=== PATIENT | female | born 1985 | race Two or more races ===

== ENCOUNTER 2020-07-14 13:16 | Emergency (ER) | payer MEDICARE, MEDICAID, SELFPAY ==
[2020-07-14 13:42] VITALS: BP 134/77; PULSE 85; RESP 17; TEMP 36.2; O2SAT 98; BMI 36.4
--- NOTE | 2020-07-14 14:10 | ED_ITS ---
HPI - Eye Problem General Chief complaint: Eye Problems Stated complaint: eye pain Time Seen by Provider: 07/14/20 14:02 Source: patient Mode of arrival: ambulatory Limitations: no limitations History of Present Illness HPI Narrative: 34-year-old female presenting to the ED with complaints of right upper eyelid swelling for the past 2 days worse today. Denies any other symptoms complaints or concerns related to this. Related Data Previous Rx's Medication Instructions Recorded cephalexin [Keflex] 500 mg PO Q6H 14 Days #56 cap 07/14/20 ibuprofen 800 mg PO Q8H PRN #14 tab 07/14/20 oxycodone-acetaminophen [Percocet] 1 tab PO Q6H PRN #10 tab 07/14/20 sulfamethoxazole-trimethoprim 1 tab PO Q12H 14 Days #28 tab NS 07/14/20 [Bactrim DS] Allergies Allergy/AdvReac Type Severity Reaction Status Date / Time tramadol Allergy Unknown Unknown Verified 07/14/20 13:46 No Known Allergies Allergy Verified 07/14/20 13:46 Review of Systems Review of Systems: Constitutional : No Fever, No Chills ENT/Mouth : No Ear Pain, No Nasal Congestion, No Sinus Pain, No Hoarseness, No sore throat, No Rhinorrhea, No Swallowing Difficulty Eyes: No Foreign Body, No Vision Changes, No trauma, No eye pain Cardiovascular : No Chest Pain, No SOB Respiratory : No Cough Musculoskeletal : No joint pain, No Myalgias, No Joint Swelling Skin : No Skin Lesions, No rash Neuro : No Weakness, No Headache Heme/Lymph: No Lymphadenopathy Yes all other systems are reviewed and are negative [facility] Past Medical History Attestation statement: The following information was validated with the patient. Surgical History No pertinent past surgical history Family History Family History Father Diabetes Mother No problems noted. Social History Social History Smoking Status: Never smoker Use of substances other than those prescribed or required for medical reasons: Yes Substance Use Type: Marijuana Substance Use Frequency: Daily Advance Directives: No Advance Directives Information Provided: Yes Physical Exam Vital Signs: Vital Signs: Vital Signs Temp Pulse Resp BP Pulse Ox 07/14/20 13:42 97.2 F 85 17 134/77 98 Body Mass Index 36.4 vital signs have been reviewed as normal and appeared to be correct. Blood pressure normal. Heart rate normal. Respiration rate normal. Temperature normal. Oxygen saturation normal. Appearance: Alert. Oriented X3. No acute distress. Head: Normal external exam. Normocephalic. Atraumatic. No Ray signs noted. No raccoon eyes noted Eyes: PERRLA. EOMI. Conjunctiva and sclera normal. right upper eyelid with mild soft tissue swelling and erythema. Right eye noted to have watery discharge. normal funduscopic exam. ENT: EAC normal. TM's Normal. Pharynx normal. Uvula midline. Moist mucous membranes. No trismus noted. No drooling noted. No muffled voice noted. Neck: Normal inspection. Neck supple. FROM. No adenopathy. Thyroid Normal. No meningeal signs. No neck mass noted. CVS: Normal heart rate and rhythm. Heart sound normal. No murmurs noted. Pulses normal throughout. Respiratory: No respiratory distress. Painless inspiration. Breath sounds normal. No wheezes/rales/rhonchi noted. Chest nontender. No accessory muscle usage noted or decreased air movement noted. Abdomen: Soft and nontender. Bowel sounds normal in all 4 quadrants. No distention noted. No organomegaly noted. No visible injury noted. Back: No CVA tenderness. Full range of motion noted. Skin: Skin warm and dry. Normal skin color. Normal skin turgor. No rashes/lesions/lacerations noted. Extremities: No lower extremity edema. Extremities exhibit normal range of motion. Extremities nontender. Neuro: Oriented X 3. No motor deficit. No sensory deficit. Reflexes normal. Course Course Course Narrative: 34-year-old female presenting to the ED with complaints of right upper eyelid swelling for the past 2 days worse today. Denies any other symptoms complaints or concerns related to this. - Patient most likely periorbital cellulitis. Extraocular movements are intact. No evidence of orbital cellulitis at this time. Will DC home with antibiotics and symptomatic treatment along with instructions to return if any new or worsening symptoms to follow-up with her primary care provider. Patient understands agrees with this plan. Discharge Plan Discharge Clinical Impression: Periorbital cellulitis Patient Disposition: Home, Self-Care Instructions: Periorbital Cellulitis in Adults (ED) Prescriptions: New sulfamethoxazole-trimethoprim [Bactrim DS] 800-160 mg tablet 1 tab PO Q12H 14 Days Qty: 28 RF: 0 cephalexin [Keflex] 500 mg capsule 500 mg PO Q6H 14 Days Qty: 56 RF: 0 oxycodone-acetaminophen [Percocet] 5-325 mg tablet 1 tab PO Q6H PRN (Reason: pain) Qty: 10 RF: 0 ibuprofen 800 mg tablet 800 mg PO Q8H PRN (Reason: pain) Qty: 14 RF: 0 Referrals: Po,Olamide Johns MD [Primary Care Provider] - 2 days Stand Alone Forms: Work/School Release Print Language: Sami
[2020-07-14] MEDS: cephALEXin 500 MG CAPSULE PO (14:11)
== END 2020-07-14 14:35 | disposition home or self-care (01) ==
PROVIDERS: Emergency Provider Emergency Medicine; PCP Internal Medicine
DX: L03.213 Periorbital cellulitis (principal)
CPT/HCPCS: 99283

== ENCOUNTER 2020-09-12 08:32 | Emergency (ER) | payer MEDICARE, MEDICAID, SELFPAY ==
--- NOTE | 2020-09-12 08:44 | ED.EYEPROB ---
HPI - Eye Problem General Chief complaint: Eye Problems Stated complaint: eye issue Time Seen by Provider: 09/12/20 08:44 Source: patient Mode of arrival: ambulatory History of Present Illness HPI Narrative: 35 yo female with history of periorbital cellulitis in Jun 2020 presenting with right eye pain x2 days and right eye redness and drainage that started yesterday. She states she woke up with morning and her eye was crusted shut. She denies change in vision. She does not wear contacts. She denies trauma. She feels like there is something stuck in her eye. Related Data Previous Rx's Medication Instructions Recorded cephalexin [Keflex] 500 mg PO Q6H 14 Days #56 cap 07/14/20 ibuprofen 800 mg PO Q8H PRN #14 tab 07/14/20 oxycodone-acetaminophen [Percocet] 1 tab PO Q6H PRN #10 tab 07/14/20 sulfamethoxazole-trimethoprim 1 tab PO Q12H 14 Days #28 tab NS 07/14/20 [Bactrim DS] cephalexin [Keflex] 500 mg PO QID #28 cap 09/12/20 erythromycin 0.5 inch OPHTHALMIC (EYE) TID #3.5 09/12/20 g sulfamethoxazole-trimethoprim 1 tab PO Q12H #14 tab 09/12/20 [Bactrim DS] Allergies Allergy/AdvReac Type Severity Reaction Status Date / Time tramadol Allergy Unknown Unknown Verified 07/14/20 13:46 No Known Allergies Allergy Verified 07/14/20 13:46 Review of Systems Review of Systems: Constitutional: No Fever, No Chills ENT/Mouth: No sore throat, No Rhinorrhea, No Swallowing Difficulty Eyes: + Eye Pain, + Swelling, + Redness, +discharge Cardiovascular: No Chest Pain, No SOB Respiratory: No Cough, No Sputum Musculoskeletal: No joint pain, No Myalgias Skin: No Skin Lesions, No rash Neuro: + Headache Heme/Lymph: No Bruising PMFSH Past Medical History Attestation statement: The following information was validated with the patient. Medical History Asthma Surgical History No pertinent past surgical history Family History Family History Father Diabetes Mother No problems noted. Social History Social History Smoking Status: Never smoker Substance Use Type: Marijuana Advance Directives: No Advance Directives Information Provided: Yes Physical Exam Vital Signs: Vital Signs: Last Vital Signs Temp 98.4 F 09/12/20 08:48 Pulse 81 09/12/20 08:48 Resp 16 09/12/20 08:48 BP 109/65 09/12/20 08:48 Pulse Ox 97 09/12/20 08:48 Body Mass Index 35.9 Appearance: Alert. Oriented X3. No acute distress. HEENT: PERRLA, EOMI. right eye with upper lid edema and erythema, no hordeolum appreciated, conjunctiva is injected with watery discharge, fluoroscein stain showing small linear abrasion at 9 o clock position. no ulcerations. VA noted. CVS: Normal heart rate and rhythm. Pulses normal. Respiratory: No respiratory distress. Skin: Skin warm and dry. Normal skin color. Normal skin turgor. No rashes. Extremities: no LE edema Neuro: Oriented X 3. No motor deficit. No sensory deficit. Course Course Course Narrative: 35 y/o female presenting with eye pain and redness x2 days. Hx periorbital cellulitis. Will treat for the same given her exam findings. Very low suspicion for sepsis. Small corneal abrasion as well so topical erythromycin ointment prescribed. Will refer to ophthalmology. Instructed to return if symptoms worsen. Discharge Plan Discharge Clinical Impression: Bacterial conjunctivitis, Periorbital cellulitis of right eye Patient Disposition: Home, Self-Care Instructions: Periorbital Cellulitis in Adults (ED), Conjunctivitis (ED) Additional Instructions: Take the prescribed antibiotics as directed. Use the antibiotic ointment in your as well. Follow up with your doctor this week. Follow up with the eye doctor this week as well. If your symptoms worsen despite treatment with antibiotics, come back to the ER for further evaluation. Prescriptions: New cephalexin [Keflex] 500 mg capsule 500 mg PO QID Qty: 28 RF: 0 sulfamethoxazole-trimethoprim [Bactrim DS] 800-160 mg tablet 1 tab PO Q12H Qty: 14 RF: 0 erythromycin 5 mg/gram (0.5 %) ointment 0.5 inch ophthalmic (eye) TID Qty: 3.5 RF: 0 No Action sulfamethoxazole-trimethoprim [Bactrim DS] 800-160 mg tablet 1 tab PO Q12H 14 Days Qty: 28 RF: 0 cephalexin [Keflex] 500 mg capsule 500 mg PO Q6H 14 Days Qty: 56 RF: 0 oxycodone-acetaminophen [Percocet] 5-325 mg tablet 1 tab PO Q6H PRN (Reason: pain) Qty: 10 RF: 0 ibuprofen 800 mg tablet 800 mg PO Q8H PRN (Reason: pain) Qty: 14 RF: 0 Referrals: Shivam Gomez [Physician] - 2 days Interventions: ED Discharge Assessment Last Done: 09/12/20 09:51 Discharge Date/Time: 09/12/20 09:52
[2020-09-12 08:48] VITALS: BP 109/65; PULSE 81; RESP 16; TEMP 36.9; O2SAT 97; BMI 35.9
[2020-09-12] MEDS: Tetracaine HCl/PF 0.5% Oph Sol 4 ML DROPS 1 DROP EYE-RIGHT (09:03)
[2020-09-12] MEDS: Fluorescein Sodium STRIP 1 STRIP EYE-BOTH (09:03)
== END 2020-09-12 09:52 | disposition home or self-care (01) ==
PROVIDERS: Emergency Provider Emergency Medicine; PCP Internal Medicine
DX: H10.89 Other conjunctivitis (principal); L03.213 Periorbital cellulitis
CPT/HCPCS: 99283

== ENCOUNTER 2020-10-22 09:04 | Outpatient (REF) | payer MEDICARE, MEDICAID, SELFPAY ==
[2020-10-22 09:47] LABS: MANUAL DIFF FLAG NO
[2020-10-22 09:54] LABS: Basophils Percent Auto 0.3 % (0-2); Eosinophils Absolute Auto 0.1 X10*3/uL (0.0-0.4); Eosinophils Percent Auto 0.9 % (0-4); Hematocrit 43.1 % (37-47); Imm Gran Abs Auto 0.02 X10*3/uL (0.00-0.03); Imm Gran Pct Auto 0.2 % (0.0-0.4); Lymphocytes Absolute Auto 2.4 X10*3/uL (1.2-4.9); Mean Corpuscular HGB Conc 32.5 g/dl (31.0-35.0); Mean Corpuscular Hemoglobin 30.3 pg (27.0-33.0); Mean Corpuscular Volume 93.3 fL (80-98); Mean Platelet Volume 10.3 fL (9.4-12.3); Monocytes Absolute Auto 0.6 X10*3/uL (0.1-1.2); Monocytes Percent Auto 7.2 % (2-11); Neutrophils Absolute Auto 5.6 X10*3/uL (2.0-8.3); Neutrophils Percent Auto 64.4 % (45-73); Platelet Count 334 X10*3/uL (160-400); Red Blood Count 4.62 X10*6/uL (4.20-5.50); Red Cell Distribution Width 13.3 % (11.0-16.0); White Blood Count 8.7 X10*3/uL (4.8-10.8)
[2020-10-22 09:56] LABS: Glucose Urine UA NEG (NEG); Leukocyte Esterase Urine NEG (NEG); Nitrite Urine NEG (NEG); PH 5.5 (5.0-8.0); Specific Gravity - Urine >= 1.030 (1.005-1.025); Urine Blood 1+ (NEG); Urine Ketones NEG (NEG); Urine Protein NEG (NEG-TRACE)
[2020-10-22 09:57] LABS: Appearance Urine HAZY; Color Urine YELLOW
[2020-10-22 10:22] LABS: Alanine Aminotransferase 13 U/L (0-31); Albumin Level 4.6 g/dL (3.5-5.0); Alkaline Phosphatase 71 U/L (39-117); Anion Gap 11 (12-20); Aspartate Amino Transferase 15 U/L (5-31); Bilirubin Total 0.7 mg/dL (0.0-1.0); Blood Urea Nitrogen 11 mg/dL (9-16); Calcium 8.9 mg/dL (8.4-10.2); Carbon Dioxide 26 mmol/L (22-29); Chloride 107 mmol/L (96-108); Cholesterol 192 mg/dL; Estimated Glomerular Filt Rate > 60; Glucose Random 86 mg/dL (60-115); HDL Cholesterol 36 mg/dL; LDL Cholesterol Calculated 138 mg/dl; Potassium 4.4 mmol/l (3.3-5.1); Sodium 140 mmol/L (135-145); Total Protein 7.8 g/dL (6.5-8.0); Triglycerides 91 mg/dL
[2020-10-22 10:26] LABS: Estimated Average Glucose 100 mg/dL; Hemoglobin A1c % 5.1 %
[2020-10-22 10:45] LABS: Free T4 (Free Thyroxine) 0.94 ng/dL (0.71-1.85); Thyroid Stimulating Hormone 0.46 uIU/mL (0.32-4.0)
[2020-10-22 10:55] LABS: Bacteria Urine TRACE /LPF; Mucus Urine 2+ /LPF; RBC Urine 0-2 /HPF (0); Squamous Epithelial Cell Urine 2+ /LPF; WBC Urine 0-2 /HPF (0-4)
[2020-10-25 15:33] LABS: Vitamin B12 353 pg/mL (200-900)
== END 2020-10-22 09:05 | disposition home or self-care (01) ==
LOC: HO.LAB 09:04
PROVIDERS: PCP Internal Medicine; Visit Provider Internal Medicine
DX: E78.00 Pure hypercholesterolemia, unspecified (principal); R30.0 Dysuria; R35.0 Frequency of micturition
CPT/HCPCS: 36415; 80053; 80061; 81001; 82607; 82746; 83036; 84439; 84443; 85025

== ENCOUNTER 2021-04-20 23:18 | Emergency (ER) | payer MEDICARE, MEDICAID, SELFPAY ==
--- NOTE | ~2021-04-20 | XR_ITS ---
EXAMINATION: XR LUMBOSACRAL SPINE CLINICAL INFORMATION: Fall COMPARISON: 02/16/2018 TECHNIQUE: Three views of the lumbosacral spine. FINDINGS: Minimal degenerative changes present with some mild disc space narrowing at L4-L5 and L5-S1. There is barely perceptible grade 1 anterolisthesis of L4 upon L5 which is new when compared to the prior study. No fractures or bony destructive lesions seen. XR/XR lumbar spine 2-3V IMPRESSION: No evidence of an acute traumatic osseous injury. Degenerative changes L4-S1 as described above.
[2021-04-20 23:55] VITALS: BP 109/65; PULSE 94; RESP 16; TEMP 36.7; O2SAT 100; BMI 29.2
[2021-04-21 03:11] VITALS: BP 102/57; PULSE 70; RESP 14; O2SAT 98
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
[2021-04-21] MEDS: Lidocaine 4 % Patch ADH..PATCH 1 PATCH TRANSDERMA (03:49)
[2021-04-21] MEDS: Ibuprofen 400 MG TABLET PO (03:59)
== END 2021-04-21 04:16 | disposition home or self-care (01) ==
PROVIDERS: Emergency Provider Student in an Organized Health Care Education/Training Program
DX: M54.5 Low back pain (principal); F12.90 Cannabis use, unspecified, uncomplicated; Z79.899 Other long term (current) drug therapy
CPT/HCPCS: 72100; 99283; 99284

== ENCOUNTER → 2021-07-11 10:16 | Outpatient (BNVA) | payer MEDICARE, MEDICAID, SELFPAY | PROVIDERS: PCP Internal Medicine; Visit Provider Anesthesiology | DX: M47.817 Spondylosis without myelopathy or radiculopathy, lumbosacral region (principal); G89.4 Chronic pain syndrome | CPT/HCPCS: 99202 ==

== ENCOUNTER 2021-10-14 07:24 | Day surgery (SDC) | payer MEDICARE, MEDICAID, SELFPAY ==
--- NOTE | 2021-10-13 10:51 | HO.ANESPROP2 ---
Documented by User: Veronica Patel NP 10/24/21 13:20 HPI - Anesthesia Eval Consult details Narrative: 36yo F for Bilateral L3-L4-DR L5 Diagnostic Medial Branch Blocks PMFSH Active Problems Active Problems: All Active Problems (Updated 10/07/21 @ 14:37 by Nisa Flowers, RN) Dysuria (Acute) Hand numbness (Acute) Overweight (BMI 25.0-29.9) (Acute) Low back pain (Acute) Hypercholesterolemia (Acute) Hematuria (Acute) Chronic pain syndrome (Acute) Spondylosis of lumbosacral spine without myelopathy (Acute) Recurrent major depression (Acute) Asthma (Acute) Obesity (BMI 30-39.9) (Acute) Past Medical History Medical History (Updated 10/07/21 @ 14:37 by Nisa Flowers, RN) Asthma Chronic pain syndrome Degenerative disc disease, lumbar Depression Hypercholesterolemia 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 Surgical History Surgical History (Updated 10/07/21 @ 14:41 by Nisa Flowers RN) History of surgery No pertinent past surgical history Social History Social History Housing: Apartment Patient Tobacco Use Status: Former Tobacco user Tobacco use type: Cigarette e-Cigarette/Vaping Use: Never Used Second Hand Smoke Exposure: No Substance Use Type: Marijuana service: No Current occupational status: unemployed Meds Allergies Allergy/AdvReac Type Severity Reaction Status Date / Time tramadol Allergy Unknown Unknown Verified 11/04/21 10:59 Home Medications Medication Instructions Recorded Confirmed Last Taken Type clonazepam 0.5 mg tablet 0.5 mg PO DAILY 10/20/20 11/04/21 Unknown History Exam Exam Date and Time: October 13, 2021 1051 Assessment and Plan Assessment Anesthesia Assessment: Chart Reviewed Documented by User: Collins Aparicio MD 01/04/22 16:25 HPI - Anesthesia Eval Consult details Narrative: 36yo F for Bilateral L3-L4-DR L5 Diagnostic Medial Branch Blocks both hand nubness PMFSH Past Medical History Medical History (Updated 10/07/21 @ 14:37 by Nisa Flowers, RN) Asthma Chronic pain syndrome Degenerative disc disease, lumbar Depression Hypercholesterolemia 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 Family history of problems with anesthesia: No Surgical History Surgical History (Updated 10/07/21 @ 14:41 by Nisa Flowers RN) History of surgery No pertinent past surgical history History of Problems with Anesthesia: No Social History Social History Housing: Apartment Patient Tobacco Use Status: Former Tobacco user Tobacco use type: Cigarette e-Cigarette/Vaping Use: Never Used Second Hand Smoke Exposure: No Substance Use Type: Marijuana service: No Current occupational status: unemployed Meds Allergies Allergy/AdvReac Type Severity Reaction Status Date / Time tramadol Allergy Unknown Unknown Verified 11/04/21 10:59 Home Medications Medication Instructions Recorded Confirmed Last Taken Type clonazepam 0.5 mg tablet 0.5 mg PO DAILY 10/20/20 11/04/21 Unknown History Exam Airway Mallampati Class: III TM Dist: >3cm Neck ROM: Limited Loose/Missing/Broken Teeth: Yes (Braces , bands ) Heart: S1 S2 Lungs: b/l breath sounds Assessment and Plan Assessment Anesthesia Assessment: Anesthesia Plan Discussed Final Anesthetic Review Family History of Problems with Anesthesia: No History of Problems with Anesthesia: No NPO: Yes ASA Class: II Final Preanesthetic Review: No Changes in Pt Med Stat, Meds/Allgs Chart Reviewed, Consent Obtained/Reviewed and Anes Risks/Benef Reviewed Patient Risk: Intermediate Procedure Risk: Intermediate Anesthetic Plan Anesthetic Plan: MAC: Disposition: Standard PACU
--- NOTE | ~2021-10-14 | FL_ITS ---
EXAMINATION: XR FLUOROSCOPY WITH IMAGES CLINICAL INFORMATION: Back pain COMPARISON: Lumbar spine study of April 21, 2021 TECHNIQUE: Fluoroscopy performed by Dr. Paul Posey. Fluoroscopy time: 0.5 minutes DAP: 4.68 Gycm2 Images: 6 FINDINGS: [place] and contrast seen injected for medial branch blocks bilaterally L3-L5 FL/FL guidance in OR IMPRESSION: Spinal injections under fluoroscopy.
[2021-10-14 07:33] VITALS: BMI 29.8
[2021-10-14 07:45] VITALS: BP 104/53; PULSE 91; RESP 16; TEMP 36.1; O2SAT 96
[2021-10-14 07:54] LABS: UPreg QC Valid YES; Urine Pregnancy NEGATIVE (NEGATIVE)
--- NOTE | 2021-10-14 07:54 | P.OP_ITS ---
Operative Note Operative Note Date of Service: 10/14/21 Narrative: Informed consent was explained to the patient. All questions were explained and? answered.? The patient was taken inside the operating room where she was positioned prone on the operating table.? [place] [employer] monitors were applied.? Patient was deeply sedated. ? Time-out was performed delineating correct site, side, the nature of the procedure, patient's allergy, preoperative antibiotic if needed.? All operating room staff was participating in OR time-out procedure. ? ? The lower back was prepped with ChloraPrep and draped with sterile towels.? Sterilely draped C-arm was brought over the operating field and sq picture of L4-and L5 vertebra and S1 AREA were delineated on the screen.? Point of interest were delineated as connection of superior articular process of L4 and L5 vertebra bilaterally with corresponding transverse processes as well as connection of the sacral alae bilaterally with superior articular process of S1.? The projection of the point of interest to the skin were injected with the small amount of local anesthetic lidocaine 2% 1-1.5 cc.? After that 22 gauge 3- 1/2 inch spinal needle was driven sequentially to the points of interest in tunnel vision fashion. After needles gently contacted the bone at the point of interests the needle was injected with small amount of the contrast.? The injection of the contrast did not demonstrate any intravascular or intrathecal spread of the contrast.? After that injection of the? bupivacaine 0.5%-1cc was performed at each needle location.? ? Upon completion of the injections? needle was? removed and sterile Band-Aids were applied.? The? patient was awaken and taken outside of the operating room to recovery room where she recovered uneventfully.? She went home without immediate complications. ?
--- NOTE | 2021-10-14 07:54 | MHC.SHP ---
Pre-Procedural Eval Section A Date of Service: 10/14/21 The patient is an INPATIENT: No Changes since office visit: Yes Patient answered all questions The History & Physical has been completed within 30 days and I have reviewed it.: No Section B Chief Complaint: Spondylosis of Lumosacral Spine w/o myelopathy Details of Present Illness: as above Relevant Family History (Specify if Yes): No Relevant Social History: None Present Medications: see Short Stay Collaborative assessment Medical History: No relevant PMH History of Previous Operations: No relevant previous surgery Allergies: Allergies Allergy/AdvReac Type Severity Reaction Status Date / Time tramadol Allergy Unknown Unknown Verified 10/07/21 14:26 Review of Systems Sugical H&P ROS: Negative: Constitution, Cardiovascular, Respiratory, Neurological, Psychiatric, Hem-Onc, Allergic/Immunologic, Gastrointestinal, Genitourinary, Musculoskeletal, Integumentary, Endocrine and Eyes/Ears/Nose/Throat Exam Surgical H&P Exam: Normal: HEENT, Normal: Heart, Normal: Lungs, Normal: Extremities, Normal: Abdomen, Normal: Skin and Normal: Neurological Plan Diagnosis/Plan: Unchanged I have reviewed the history and physical and performed a pertinent physical examination on my patient. No changes have occurred unless specified.
[2021-10-14] MEDS: Lactated Ringers 1,000 ML 100 ML IVCONT (07:56)
[2021-10-14 09:50] VITALS: BP 92/53; PULSE 100; RESP 20; TEMP 36.4; O2SAT 97
--- NOTE | 2021-10-14 10:00 | P.BOP_ITS ---
Brief Operative Note Date of Service: 10/14/21 Pre-op diagnosis: Spondylosis lumbar spine Post-op diagnosis: same Procedure: Medial branch block L3-L4 does ramus L5 bilateral diagnostic Surgeon: Paul Posey MD Anesthesia: MAC Was an Instrument And Electrical Technician used for this Procedure?: No Estimated blood loss (mL): 0 Pathology: none sent Condition: stable Disposition: PACU
[2021-10-14 10:05] VITALS: BP 101/55; PULSE 80; RESP 20; O2SAT 100
[2021-10-14 10:20] VITALS: BP 98/56; PULSE 77; RESP 18; TEMP 36.6; O2SAT 100
== END 2021-10-14 11:00 | disposition home or self-care (01) ==
PROVIDERS: Nurse Practitioner; PCP Internal Medicine; Visit Provider Anesthesiology
PROC: (CPT 64493; principal; 2021-10-14 09:00)
DX: M47.817 Spondylosis without myelopathy or radiculopathy, lumbosacral region (principal); M54.50 Low back pain, unspecified; G89.4 Chronic pain syndrome; M25.552 Pain in left hip; M25.551 Pain in right hip; M79.7 Fibromyalgia; G62.9 Polyneuropathy, unspecified; J45.909 Unspecified asthma, uncomplicated; F33.9 Major depressive disorder, recurrent, unspecified; E66.9 Obesity, unspecified; Z68.29 Body mass index [BMI] 29.0-29.9, adult; F12.90 Cannabis use, unspecified, uncomplicated; Z79.899 Other long term (current) drug therapy; Z88.8 Allergy status to other drugs, medicaments and biological substances; Z87.891 Personal history of nicotine dependence
CPT/HCPCS: 64493; 64494 ×2; 81025; J2250; J3300; Q9967

== ENCOUNTER → 2021-10-19 15:53 | Outpatient (BNVA) | payer MEDICARE, MEDICAID, SELFPAY | PROVIDERS: PCP Internal Medicine; Visit Provider Anesthesiology | DX: M47.817 Spondylosis without myelopathy or radiculopathy, lumbosacral region (principal); G89.4 Chronic pain syndrome | CPT/HCPCS: Q3014 ==

== ENCOUNTER 2022-10-13 07:32 | Outpatient (REF) | payer MEDICARE, MEDICAID, SELFPAY ==
--- NOTE | ~2022-10-13 | XR_ITS ---
EXAMINATION: XR cervical spine 2V CLINICAL INFORMATION: Pain COMPARISON: None TECHNIQUE: 3 views of the cervical spine were obtained. FINDINGS: The cervical spine is visualized to the level of C7 on the lateral view. Vertebral body alignment is maintained. Vertebral body heights are maintained. Lateral masses of C1 are well aligned on C2. Visualized portion of the dens is intact. Mild degenerative disc disease at C5/C6, manifested by disc space narrowing and osteophytosis. No prevertebral soft tissue swelling. XR/XR cervical spine 2V IMPRESSION: Mild spondylosis of the cervical spine, as above detailed. No significant spondylolisthesis.
[2022-10-13 09:03] LABS: Alanine Aminotransferase 16 U/L (0-31); Albumin Level 4.3 g/dL (3.5-5.0); Alkaline Phosphatase 65 U/L (39-117); Anion Gap 12 (12-20); Aspartate Amino Transferase 17 U/L (5-31); Bilirubin Total 0.4 mg/dL (0.0-1.0); Blood Urea Nitrogen 8 mg/dL (9-16); Calcium 9.2 mg/dL (8.4-10.2); Carbon Dioxide 27 mmol/L (22-29); Chloride 105 mmol/L (96-108); Cholesterol 185 mg/dL; Estimated Glomerular Filt Rate > 60; Glucose Random 97 mg/dL (60-115); HDL Cholesterol 33 mg/dL; LDL Cholesterol Calculated 133 mg/dl; Sodium 140 mmol/L (135-145); Total Protein 7.3 g/dL (6.5-8.0); Triglycerides 97 mg/dL
[2022-10-13 09:19] LABS: TSH reflex Free T4 0.41 uIU/mL (0.32-4.0); Vitamin D 25-OH Total 17.6 ng/mL (>30)
--- NOTE | 2022-10-13 12:03 | PFT_ITS ---
Forced vital capacity 87%, FEV1 76%, FEV1/FVC ratio is 73. [id number] is 50% and MVV is 84%. Post bronchodilator therapy, there is a significant improvement in FEV1 by 16% and in [id number] by 59%. Total lung capacity 98%. Residual volume 117%. Diffusion capacity 114%. CONCLUSION: Moderate to severe obstructive airway disorder with almost complete reversibility after bronchodilator therapy. These findings are consistent with bronchial asthma. Clinical correlation is recommended. MD CAR Avelar/MODL / [id number]
== END 2022-10-13 07:33 | disposition home or self-care (01) ==
LOC: HO.RESP 07:32
PROVIDERS: PCP Internal Medicine; Visit Provider Nurse Practitioner Family
DX: J45.909 Unspecified asthma, uncomplicated (principal); M54.2 Cervicalgia; Z13.1 Encounter for screening for diabetes mellitus; Z13.220 Encounter for screening for lipoid disorders; Z13.21 Encounter for screening for nutritional disorder; Z13.29 Encounter for screening for other suspected endocrine disorder; F17.210 Nicotine dependence, cigarettes, uncomplicated; Z79.899 Other long term (current) drug therapy
CPT/HCPCS: 36415; 72040; 80053; 80061; 82306; 84443; 94060; 94727; 94729

== ENCOUNTER 2022-12-08 15:19 | Outpatient (REF) | payer MEDICARE, MEDICAID, SELFPAY ==
--- NOTE | ~2022-12-08 | XR_ITS ---
EXAMINATION: XR ELBOW, RIGHT CLINICAL INFORMATION: Elbow pain COMPARISON: None available. TECHNIQUE: AP, lateral, and oblique views of the right elbow. FINDINGS: No acute fracture or dislocation. No joint effusion. Alignment is anatomic. Joint spaces are maintained. No abnormal soft tissue calcification. XR/XR elbow RT min 3V IMPRESSION: No evidence of acute osseous abnormality.
== END 2022-12-08 15:20 | disposition home or self-care (01) ==
LOC: HO.XRAY 15:19
PROVIDERS: PCP Internal Medicine; Visit Provider Nurse Practitioner Family
DX: M25.521 Pain in right elbow (principal)
CPT/HCPCS: 73080

== ENCOUNTER 2023-02-28 10:00 | Outpatient (RCR) | payer MEDICARE, MEDICAID, SELFPAY ==
--- NOTE | 2023-01-05 11:43 | MHC.OT.EP ---
[address] [phone] Occupational Therapy Plan of Care Patient Name: Yeni Damon Date of Evaluation: 01/05/23 Diagnosis: Right Elbow Pain Pain Location: Right lateral and posterior elbow, radiates down dorsal forearm, constant pain Tenderness to palpate lateral elbow and dorsal forearm mobile wad Pain Score: 8 Pain Scale Used: Aggravating Factors: Worse w/ sleeping, gripping, outstretched hand and gripping Alleviating Factors: Takes a muscle relaxor (does not help w/ pain) Assessment: 37 yo female was seen by PCP w/ reported right elbow pain and occasional numbness for a couple weeks. X-Rays (-) for acute changes, pt referred to OT for continued care. On assessment, pain appears to be localized to right lateral epicondyle w/ tenderness as well over dorsal forearm. Pt reports she gets increased pain w/ reaching out and gripping, but also lifting and carrying heavy objects. She has good range, UE strength, coordination and sensation, but gross grasp is about 50% of left hand. Symptoms are consistent with acute lateral epicondylitis and we have initiated therapy w/ stretching, joint modifications and activity modification. she will benefit from cont'd therapy services for optimal gains. Frequency and Duration: The patient will be seen 2x/wk for 4 weeks Short Term Goals: Ind w/ HEP Ind w/ CFB wear with daily activities Pt to trial nighttime modifications and possible nighttime orthosis Pt to report 2/10 pain w/ light activities and at rest Bag Turner Goals: Progress to eccentric wrist strengthening 2/10 pain w/ moderate daily activities (sweeping, cooking, childcare) Pain free at rest and w/ sleep QuickDASH score <35 pts Treatment Plan: nighttime resting orthosis iotno w/ dex Electronically Signed By: Leyda Bradley, OTR/L CHT Please Sign and return to therapist. Thank you once again for your referral.
--- NOTE | 2023-02-28 10:21 | MHC.OT.DC ---
[address] [phone] F: [phone] Occupational Therapy Discharge Note Patient Name: Yeni Damon Provider: JENNIFER Magana Diagnosis: Right Elbow Pain Date of Evaluation: 01/05/23 Date of Discharge: 02/28/23 Treatments to Date: 9 Discharge Summary: Yeni was referred to OT for right elbow pain, likely overuse injury with daily activities. She has had consistently high pain w/ minimal relief through course of therapy. Today patient reporting increase in pain again; she has been wearing nighttime orthosis and completing HEP, but still difficulty lifting and completing daily activities. No significant gains made w/ OT. Pt now reporting more pain in her neck as well, may benefit from PT assessment, but also referral to epic willow specialist for further assessment of elbow and forearm pain. Electronically Signed By: Leyda Bradley OTR/Stephanie CHT Please Sign and return to therapist, thank you for your referral.
== END 2023-02-28 13:07 | disposition home or self-care (01) ==
LOC: HO.OT 10:00
PROVIDERS: PCP Internal Medicine; Visit Provider Nurse Practitioner Family
DX: M25.521 Pain in right elbow (principal)
CPT/HCPCS: 29125; 97033; 97035; 97110; 97140; 97165; 97530; 97760

== ENCOUNTER 2023-04-09 13:14 | Outpatient (AMB) | payer MEDICARE, MEDICAID, SELFPAY ==
[2023-04-09 13:17] VITALS: BP 110/60; PULSE 91; O2SAT 96; BMI 32.7
--- NOTE | 2023-04-09 13:17 | MHC.PC.OV ---
Vital Signs 04/09/23 13:17 Height 5 ft 1 in Weight 173 lb BMI 32.7 BP 110/60 Blood Pressure Location Lt brachial Position Sitting Pulse 91 Pulse Source Pulse Oximeter Temp Source Skin Pulse Oximetry (%) 96 Oxygen Delivery Method Room Air Intake Visit Reasons: 6mth f/u Intake Note: Patient is here to follow up on 6 months Commercial Account Executive Required: Yes Commercial Account Executive Language: Hungarian Allergies tramadol Allergy (Unknown, Verified 04/09/23 13:23) Unknown Medication List - Last Reconciled 04/09/23 by Olamide Matos MD albuterol sulfate 90 mcg/actuation (Ventolin HFA) 2 puffs inhalation Q6H PRN alprazolam 0.25 mg PO DAILY PRN 30 days cholecalciferol (vitamin D3) 50 mcg PO DAILY ibuprofen 400 mg PO Q6H PRN omeprazole 20 mg PO DAILY sertraline 25 mg PO DAILY tizanidine 2 mg PO Q12H PRN Tobacco use date assessed: 04/09/23 HPI 6mth f/u HPI Details 37-year-old obese female with asthma cervical spondylosis hypercholesterolemia generalized anxiety disorder coming in for follow-up. Last seen in October 2022. Review of the notes has seen the nurse practitioner GERD, started omeprazole right elbow pain patient was referred for occupational therapy x-ray was done revealing negative results. Patient is here for follow-up. 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 Social History Housing: Apartment Patient Tobacco Use Status: Former Tobacco user Tobacco use type: Cigarette e-Cigarette/Vaping Use: Never Used Second Hand Smoke Exposure: No Substance Use Type: Marijuana service: No Current occupational status: unemployed Cognitive needs: No Hearing needs: No Vision needs: No Questionnaire Thrive Questionnaire Date Thrive assessed: 10/09/22 AUDIT C Alcohol Use Questionnaire (AUDIT-C) 1. How often do you have a drink containing alcohol?: Never 3. How often do you have six or more drinks on one occasion?: Never Total Score: 0 Score Reviewed/Action Taken: No JENNIFER-7 AMB Questionnaire JENNIFER-7 Date JENNIFER - 7 assessed: 10/09/22 Source: Developed by Drs. Alexx Frye, Deanne Turner, Todd Diaz and colleagues, with an educational ascencion from [employer]. Physical exam (Primary Care) Vital Signs: Last Vital Signs Pulse 91 04/09/23 13:17 BP 110/60 04/09/23 13:17 Pulse Ox 96 04/09/23 13:17 Oxygen Delivery Method Room Air 04/09/23 13:17 BMI result Body Mass Index 32.7 Tobacco/Smoking Status: Tobacco use Status Tobacco use date assessed 04/09/23 04/09/23 13:19 Patient Tobacco Use Status Former Tobacco user 04/09/23 13:19 Tobacco use type Cigarette 04/09/23 13:19 e-Cigarette/Vaping Use Never Used 04/09/23 13:19 Thrive Assessment: Date of Thrive Assessment Date Thrive assessed 10/09/22 04/09/23 13:19 Const General: alert; No acute distress Eyes Conjunctivae: conjunctivae normal Resp Auscultation: clear to auscultation bilaterally Cardio Rate: regular rate Rhythm: regular rhythm GI Inspection: Yes normal to inspection Extrem General: Yes normal to inspection and No edema Assessment and Plan Assessment & Plan (1) Hypercholesterolemia: Code(s): E78.00 - Pure hypercholesterolemia, unspecified Plan: Avoid fried foods, chicken skin, eggs, butter margarine, pastries and meat. Be it pork or beef they have a lot of cholesterol LDL goal of less than 130 and triglyceride of less than 150 (2) Right elbow pain: Code(s): M25.521 - Pain in right elbow Plan: Occupational therapy did not help , will refer to orthopedics (3) GERD (gastroesophageal reflux disease): Code(s): K21.9 - Gastro-esophageal reflux disease without esophagitis Plan: Avoid the foods that causes that usually spicy foods, tomato products, juices, coffee, soda and foods that your sensitive to. After eating do not lie down, allow 3-4 hours before in lie down. And keep the head of bed above 30 degrees to avoid the acid from going up. On omeprazole (4) Obesity (BMI 30-39.9): Code(s): E66.9 - Obesity, unspecified Plan: Diet and exercise (5) Generalized anxiety disorder: Comment: Declined referral for counseling October 2019 Code(s): F41.1 - Generalized anxiety disorder (6) Lateral epicondylitis: Code(s): M77.10 - Lateral epicondylitis, unspecified elbow Plan: referral to ortho (7) Asthma: Comment: PFT: 10/14/22: Moderate to severe obstructive airway disorder with almost complete reversibility after bronchodilator therapy. These findings are consistent with bronchial asthma. Code(s): J45.909 - Unspecified asthma, uncomplicated Plan: seldom uses inhalers Orders: Referrals Orthopedics Referral M77.10 - Lateral epicondylitis, unspecified elbow Medications: New sertraline 25 mg PO DAILY 30 tabs 3RF F41.1 - Generalized anxiety disorder Refilled cholecalciferol (vitamin D3) 50 mcg PO DAILY 90 caps 3RF F41.1 - Generalized anxiety disorder Coding Level of Care Code Est Pt Level 4 (48596) Diagnoses Hypercholesterolemia E78.00 Right elbow pain M25.521 GERD (gastroesophageal reflux disease) K21.9 Obesity (BMI 30-39.9) E66.9 Generalized anxiety disorder F41.1 Lateral epicondylitis M77.10 Asthma J45.909
== END 2023-04-09 13:47 | disposition home or self-care (01) ==
PROVIDERS: Visit Provider Internal Medicine
DX: K21.9 Gastro-esophageal reflux disease without esophagitis (principal); J45.909 Unspecified asthma, uncomplicated; Z68.32 Body mass index [BMI] 32.0-32.9, adult; E66.9 Obesity, unspecified; Z23 Encounter for immunization; E78.00 Pure hypercholesterolemia, unspecified; M25.521 Pain in right elbow; F41.1 Generalized anxiety disorder; M77.10 Lateral epicondylitis, unspecified elbow
CPT/HCPCS: 90471; 90677; 99214

== ENCOUNTER 2023-06-20 08:42 | Outpatient (AMB) | payer MEDICARE, MEDICAID, SELFPAY ==
--- NOTE | 2023-06-20 08:51 | MHC.OFFVIS ---
Intake Vital Signs 06/20/23 08:55 Height 5 ft 1 in Weight 173 lb BMI 32.7 Intake Visit Reasons: Edging Machine Catcher- B/L epicondylitis of the elbows Intake Note: Yeni a 37 year old right hand dominant female who presents today as a new patient for an evaluation of bilateral elbow. Patient reports pain came on suddenly that started about 7-8 months ago. She denies injury but states that she helps take care of grandson and picks him up. Her left elbow is the worse. No relief with PT. No other tx. Maintenance And Custodian Supervisor Name: Vitaliy ID#[id number] Allergies tramadol Allergy (Unknown, Verified 06/20/23 08:54) Unknown HPI Edging Machine Catcher- B/L epicondylitis of the elbows HPI Details 37-year-old right hand dominant female who presents to the office today with an nuclear physics teacher for evaluation of bilateral elbow pain for about 8 months. She states she has constant pain in her bilateral elbows which is worse in her left elbow. She also c/o intermittent numbness and tingling at night which radiates down to her arms and fingers. She did attend OT on her right elbow which did not provide her any relief. She denies any recent injury but she reports taking care of her grandson and picks him up. No other treatment to date. She has a history of neck arthritis. 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 Social History (Updated 06/20/23 @ 08:55 by SAFIA Miller) Housing: Apartment Patient Tobacco Use Status: Former Tobacco user Tobacco use type: Cigarette e-Cigarette/Vaping Use: Never Used Second Hand Smoke Exposure: No Substance Use Type: Marijuana service: No Current occupational status: unemployed and disabled Current occupation: right hand dominant Cognitive needs: No Hearing needs: No Vision needs: No Review of Systems Const All systems reviewed & are unremarkable except as noted in HPI and below Physical Exam Vital Signs: BMI result Body Mass Index 32.7 Const General: cooperative, healthy appearing, comfortable, no acute distress, well developed and alert Orientation/consciousness: patient oriented x3 HEENT Head: Yes normal to inspection, Yes normocephalic and Yes atraumatic Eyes General: appearance normal, both eyes and all related structures Resp Effort & Inspection: normal respiratory effort and able to speak in complete sentences Cardio Rate: regular rate Peripheral pulses: Peripheral pulses 2+ throughout GI Palpation (GI): Soft to palpation Skin Lesions: no lesions Rashes: no rashes Neuro General: patient oriented x3 Extrem Other: Bilateral elbow: Skin intact. No erythema or swelling. ROM full without pain. Tenderness over the lateral epicondyle and pain with resisted wrist extension. NVI. Office Procedures Joint Injection/Drain Joint Injection/Drain Primary Site: right tennis elbow Secondary Site: left tennis elbow Injected: 40 mg of, with 1 mL of, 1% plain lidocaine and decadron Procedure: The patient tolerated the procedure well and there was some relief with the local anesthesia Coding 93288 - Epicondyle Procedure code (CPT) selection complete Results Reviewed Results Reviewed: 06/20/23 09:07 Lidocaine HCl 1 % [Xylocaine 1 %] 2 ml .ROUTE .STK-MED ONE methylPREDNISolone acetate [DEPO-MedroL] 40 mg .ROUTE .STK-MED ONE Assessment & Plan Assessment & Plan (1) Lateral epicondylitis: Code(s): M77.10 - Lateral epicondylitis, unspecified elbow Qualifiers: Laterality: bilateral Qualified Code(s): M77.11 - Lateral epicondylitis, right elbow; M77.12 - Lateral epicondylitis, left elbow Plan An EMG nerve conduction study has been ordered to further evaluate the etiology of her numbness. We discussed options today which include steroid injection. They did consent to move forward with the bilateral elbow injections, which was tolerated well. I recommended rest, ice and elevation and OTC anti-inflammatories PRN for discomfort. I did encourage her to continue working on her home exercises. She will follow-up once the nerve study is complete. Orders: Orders NE nerve conduction velocity Today R20.0 - Anesthesia of skin, R20.2 - Paresthesia of skin NE electromyogram (EMG) Today R20.0 - Anesthesia of skin, R20.2 - Paresthesia of skin Patient Instructions: Scribed for George Fields PA-C, by Matheus Vargas biomedical service engineer, on 06/20/2023 at 9:00 AM EST. I, George Fields PA-C, have personally reviewed and agree with the information entered by the scribe. Coding Level of Care Code New Pt Level 3 (99993) Diagnoses Lateral epicondylitis of both elbows M77.11; M77.12 Laterality: bilateral CPT Codes Coding - Joint 2: 74673 - Epicondyle ([id number])
[2023-06-20 08:55] VITALS: BMI 32.7
== END 2023-06-20 09:29 | disposition home or self-care (01) ==
PROVIDERS: PCP Internal Medicine; Visit Provider Physician Assistant
DX: M77.11 Lateral epicondylitis, right elbow (principal); M77.12 Lateral epicondylitis, left elbow
CPT/HCPCS: 20551; 99203

== ENCOUNTER → 2023-06-20 08:42 | Outpatient (BNVA) | payer MEDICARE, MEDICAID, SELFPAY | PROVIDERS: PCP Internal Medicine; Visit Provider Physician Assistant | DX: M77.12 Lateral epicondylitis, left elbow (principal); M77.11 Lateral epicondylitis, right elbow; R20.0 Anesthesia of skin; R20.2 Paresthesia of skin | CPT/HCPCS: 20551; J1020 ==

== ENCOUNTER 2023-09-06 10:05 | Outpatient (AMB) | payer MEDICARE, MEDICAID, SELFPAY ==
--- NOTE | 2023-09-06 10:13 | MHC.PC.OV ---
Vital Signs 09/06/23 10:15 Height 5 ft 1 in Weight 174 lb 4 oz BMI 32.9 BP 122/72 Blood Pressure Location Rt brachial Position Sitting Pulse 81 Pulse Source Pulse Oximeter Pulse Oximetry (%) 98 Oxygen Delivery Method Room Air Intake Visit Reasons: Neck Pain Intake Note: Patient is here today for neck pain. Requesting referral to PT for neck pain. Stock Drier Tender Required: No Stock Drier Tender Name: [id number] Hu Information Interpreted: non-clinical & clinical Principal Java Developer: Not Required per policy Accompanied by: Self / Same As Patient Allergies tramadol Allergy (Unknown, Verified 09/06/23 10:28) Unknown Medication List - Last Reconciled 09/06/23 by JENNIFER Ortega albuterol sulfate 90 mcg/actuation (Ventolin HFA) 2 puffs inhalation Q6H PRN alprazolam 0.25 mg PO DAILY PRN 30 days cholecalciferol (vitamin D3) 50 mcg PO DAILY ibuprofen 400 mg PO Q6H PRN omeprazole 20 mg PO DAILY sertraline 25 mg PO DAILY tizanidine 2 mg PO Q12H PRN Tobacco use date assessed: 09/06/23 Dental Screening Dental Screen Date: 09/06/23 Did you have a dental visit in the last 12 months?: Yes Did you have a dental problem in the last 6 months where you did not have access to dental care?: No Was dental information given to patient?: Patient has dentist HPI HPI Comments History of Present Illness Details 38-year-old female past medical history significant for asthma, depression, spondylosis of lumbosacral spine without myelopathy, chronic pain syndrome, hypercholesteremia, vitamin-D deficiency and cervical spondylosis among other. Patient presents today with neck pain. Patient reports pain in neck and shoulders, for years. 8/10 burning pain. Patient reports at times both arms go numb when sleeping. Patient reports medication does not help she so she does not take anything. Cervical spine x-ray September 2022 IMPRESSION: Mild spondylosis of the cervical spine, as above detailed. No significant spondylolisthesis. 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 Social History (Updated 09/06/23 @ 10:14 by SAFIA Marie) Housing: Apartment Alcohol intake: never Patient Tobacco Use Status: Former Tobacco user Tobacco use type: Cigarette e-Cigarette/Vaping Use: Never Used Second Hand Smoke Exposure: No Substance Use Type: Marijuana service: No Current occupational status: unemployed and disabled Current occupation: right hand dominant Cognitive needs: No Hearing needs: No Vision needs: No Questionnaire Thrive Questionnaire Date Thrive assessed: 10/09/22 JENNIFER-7 AMB Questionnaire JENNIFER-7 Date JENNIFER - 7 assessed: 10/09/22 Source: Developed by Drs. Alexx Frye, Deanne Turner, Todd Diaz and colleagues, with an educational ascencion from [employer]. Review of Systems Const Denies chills, Denies fatigue, Denies fever(s) and Denies poor appetite Eyes Denies no additional complaints ENT Reports Normal hearing present and Reports neck pain Card Denies chest pain, Denies syncope, Denies rapid heart rate and Denies dyspnea Resp Denies cough and Denies dyspnea GI Denies change in stool character, Denies constipation, Denies diarrhea, Denies nausea and Denies vomiting Denies urinary frequency, Denies dysuria and Denies urinary urgency Musc Reports neck pain Neuro Reports Normal hearing present, Denies confusion and Denies syncope Psych Denies confusion Endo Denies fatigue Physical exam (Primary Care) Vital Signs: Last Vital Signs Pulse 81 09/06/23 10:15 BP 122/72 09/06/23 10:15 Pulse Ox 98 09/06/23 10:15 Oxygen Delivery Method Room Air 09/06/23 10:15 BMI result Body Mass Index 32.9 Tobacco/Smoking Status: Tobacco use Status Tobacco use date assessed 09/06/23 09/06/23 10:19 Patient Tobacco Use Status Former Tobacco user 09/06/23 10:19 Tobacco use type Cigarette 12/14/23 10:19 e-Cigarette/Vaping Use Never Used 09/06/23 10:19 Thrive Assessment: Date of Thrive Assessment Date Thrive assessed 10/09/22 09/06/23 10:19 Const General: No confusion Orientation/consciousness: No confusion HENMT Head: Yes normocephalic and Yes atraumatic Eyes Conjunctivae: conjunctivae normal Chest Chest palpation & inspection: normal inspection of the chest Resp Effort & Inspection: normal respiratory effort Auscultation: clear to auscultation bilaterally, no crackles, no rhonchi and no wheezes Cardio Rate: regular rate Rhythm: regular rhythm Heart sounds: S1 normal heart sound present and S2 normal heart sound present GI Inspection: Yes normal to inspection Back/Spine/Pelvis Cervical Spine: normal cervical lordosis, cervical ROM normal, cervical muscular tenderness, pain with cervical ROM, No Cervical spine tenderness and No step off deformity Neuro General: No confusion Cranial nerves: Yes Normal hearing present Extrem General: No edema Assessment and Plan Assessment & Plan (1) Cervical spondylosis: Comment: Mild September 2022 Code(s): M47.812 - Spondylosis without myelopathy or radiculopathy, cervical region Plan: Lidoderm patch sent to patient's pharmacy and refill on tizanidine sent. Patient advise can continue to take ibuprofen 400 mg as needed for pain please take medication with food to prevent GI upset. Referral entered to physical therapy. Plan Keep scheduled follow-up with PCP or follow-up sooner if needed. Medications: New lidocaine 5% (Lidoderm) leave on most painful area for up to 12 hrs 1 patch topical DAILY PRN 30 ea 0RF pain M47.812 - Spondylosis without myelopathy or radiculopathy, cervical region Refilled tizanidine 2 mg PO Q12H PRN 14 tabs 0RF muscle spasticity M25.521 - Pain in right elbow Coding Level of Care Code Est Pt Level 3 (50629) Diagnoses Cervical spondylosis M47.812
[2023-09-06 10:15] VITALS: BP 122/72; PULSE 81; O2SAT 98; BMI 32.9
== END 2023-09-06 13:09 | disposition home or self-care (01) ==
PROVIDERS: PCP Internal Medicine; Visit Provider Nurse Practitioner Family
DX: M47.812 Spondylosis without myelopathy or radiculopathy, cervical region (principal)
CPT/HCPCS: 99213

== ENCOUNTER 2023-12-19 14:34 | Outpatient (REF) | payer MEDICARE, MEDICAID, SELFPAY ==
--- NOTE | 2023-12-19 14:38 | EMG_ITS ---
Chief complaint: Bilateral elbow pain, hand tingling Reason for referral: Evaluate for Carpal Tunnel Syndrome Referred by: George HAGAN Procedure done: Bilateral upper extremities NCS/EMG Precautions and/or limitations: None Lao speaking, seen with senior corporate recruiter. The limb temperature was monitored continuously and remained between 32-36 degrees C during the performance of the NCS. Nerve Conduction Studies Anti Sensory Summary Table ?Stim Site NR Onset (ms) Norm Onset (ms) Peak (ms) Norm Peak (ms) O-P Amp (?V) Norm O-P Amp Site1 Site2 Delta-0 (ms) Dist (cm) Shahab (m/s) Norm Shahab (m/s) Left Median Anti Sensory (2nd Digit) Wrist ? 2.5 3.4 <3.6 58.4 >10 Wrist 2nd Digit 2.5 14.0 56 Right Median Anti Sensory (2nd Digit) Wrist ? 2.3 3.1 <3.6 69.1 >10 Wrist 2nd Digit 2.3 14.0 61 Left Ulnar Anti Sensory (5th Digit) Wrist ? 2.5 3.1 <3.7 15.6 >15.0 Wrist 5th Digit 2.5 14.0 56 Right Ulnar Anti Sensory (5th Digit) Wrist ? 2.3 3.0 <3.7 50.0 >15.0 Wrist 5th Digit 2.3 14.0 61 Motor Summary Table ?Stim Site NR Onset (ms) Norm Onset (ms) O-P Amp (mV) Norm O-P Amp iAmp (mV) Amp (1st) (%) Site1 Site2 Delta-0 (ms) Dist (cm) Shahab (m/s) Norm Shahab (m/s) Left Median Motor (Abd Poll Brev) Wrist ? 3.5 <3.9 8.2 >4.5 10.3 100.0 Elbow Wrist 3.1 20.0 65 >45 Elbow ? 6.6 5.8 7.2 70.7 Right Median Motor (Abd Poll Brev) Wrist ? 3.2 <3.9 8.4 >4.5 10.4 100.0 Elbow Wrist 3.4 18.0 53 >45 Elbow ? 6.6 7.9 9.7 94.0 Left Ulnar Motor (Abd Dig Minimi) Wrist ? 2.6 <3.0 6.6 >5 8.0 100.0 B Elbow Wrist 2.6 17.0 65 >45 B Elbow ? 5.2 6.0 7.5 90.9 A Elbow B Elbow 1.4 10.0 71 >45 A Elbow ? 6.6 5.8 7.3 87.9 Right Ulnar Motor (Abd Dig Minimi) Wrist ? 2.7 <3.0 7.0 >5 7.8 100.0 B Elbow Wrist 2.7 17.0 63 >45 B Elbow ? 5.4 6.7 7.5 95.7 A Elbow B Elbow 1.1 10.0 91 >45 A Elbow ? 6.5 6.5 7.4 92.9 Comparison Summary Table ?Stim Site NR Peak (ms) Norm Peak (ms) P-T Amp (?V) Site1 Site2 Delta-P (ms) Norm Delta (ms) Right Median/Radial Dig I Comparison (Digit 1 - 10cm) Median ? 2.5 <2.9 76.0 Median Radial 0.1 Radial ? 2.4 <2.8 47.4 EMG ?Side Muscle Nerve Root Ins Act Fibs Psw Amp Dur Poly Recrt Int Pat Comment Right 1stDorInt Ulnar C8-T1 Nml Nml Nml Nml Nml 0 Nml Complete Right FlexCarRad Median C6-7 Nml Nml Nml Nml Nml 0 Nml Complete Right Biceps Musculocut C5-6 Nml Nml Nml Nml Nml 0 Nml Complete Right Triceps Radial C6-7-8 Nml Nml Nml Nml Nml 0 Nml Complete Right Deltoid Axillary C5-6 Nml Nml Nml Nml Nml 0 Nml Complete Left 1stDorInt Ulnar C8-T1 Nml Nml Nml Nml Nml 0 Nml Complete Left FlexCarRad Median C6-7 Nml Nml Nml Nml Nml 0 Nml Complete Left Biceps Musculocut C5-6 Nml Nml Nml Nml Nml 0 Nml Complete Left Triceps Radial C6-7-8 Nml Nml Nml Nml Nml 0 Nml Complete Left Deltoid Axillary C5-6 Nml Nml Nml Nml Nml 0 Nml Complete FINDINGS: All motor and sensory nerves tested showed normal latencies, amplitudes and conduction velocities. Concentric needle EMG was performed in selected muscles of the bilateral upper extremities. Study did not reveal signs of electric abnormalities as shown in the table below. IMPRESSION: 1. This is a normal study. 2. There is no electrodiagnostic evidence for median neuropathy, ulnar neuropathy, brachial plexopathy, or cervical radiculopathy. Thank you for your kind referral. Lianne Payne MD, POLLY Board Certified, [place] Board [employer] and [employer] (ABPMR) Board Certified, [place] Board of Electrodiagnostic Medicine (ABEM) CODIN 40406 x 2 MTDD
== END 2023-12-19 14:35 | disposition home or self-care (01) ==
LOC: HO.NEURO 14:34
PROVIDERS: PCP Internal Medicine; Visit Provider Physician Assistant
DX: R20.0 Anesthesia of skin (principal); R20.2 Paresthesia of skin
CPT/HCPCS: 95886; 95911

== ENCOUNTER → 2023-12-19 14:38 | Outpatient (BNV) | payer MEDICARE, MEDICAID, SELFPAY | PROVIDERS: PCP Internal Medicine; Visit Provider Physical Medicine & Rehabilitation | DX: M25.521 Pain in right elbow (principal); M25.522 Pain in left elbow; R20.2 Paresthesia of skin | CPT/HCPCS: 95886; 95911 ==

== ENCOUNTER 2023-12-27 11:29 | Outpatient (AMB) | payer MEDICARE, MEDICAID, SELFPAY ==
[2023-12-27 11:41] VITALS: BP 126/76; PULSE 72; TEMP 36.1; O2SAT 97; BMI 34.4
--- NOTE | 2023-12-27 11:41 | AM.OFFWIN_ITS ---
Intake Vital Signs 12/27/23 11:41 Height 5 ft 1 in Weight 182 lb BMI 34.4 BP 126/76 Blood Pressure Location Lt brachial Position Sitting Pulse 72 Pulse Source Pulse Oximeter Temp 97.0 F Temp Source Temporal Artery Scan Pulse Oximetry (%) 97 Oxygen Delivery Method Room Air Intake Visit Reasons: EP RT Eye ?[place] Intake Note: pt is here today for rt eye pink started 1 week ago Patient Tobacco Use Status: Former Tobacco user Allergies tramadol Allergy (Unknown, Verified 12/27/23 11:49) Unknown Do you need a note to return to daycare/school/sports/work: No HPI HPI Comments History of Present Illness Details 38 y/o female patient who presents to [facility] in clinic with c/o right eye pain and redness x 1 week. Pt reports light sensitivity but denies vision changes. Pt reports that 6 months ago she had similar symptom, saw Eye doctor who informed her this is just inflammation of right eye. She was given a steroid eye drop, which according to Pt medicine did not work. 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 Social History (Updated 09/06/23 @ 10:14 by SAFIA Marie) Housing: Apartment Alcohol intake: never Patient Tobacco Use Status: Former Tobacco user Tobacco use type: Cigarette e-Cigarette/Vaping Use: Never Used Second Hand Smoke Exposure: No Substance Use Type: Marijuana service: No Current occupational status: unemployed and disabled Current occupation: right hand dominant Cognitive needs: No Hearing needs: No Vision needs: No Review of Systems Const All systems reviewed & are unremarkable except as noted in HPI and below Physical Exam Vital Signs: Last Vital Signs Temp 97.0 F 12/27/23 11:41 Pulse 72 12/27/23 11:41 BP 126/76 12/27/23 11:41 Pulse Ox 97 12/27/23 11:41 Oxygen Delivery Method Room Air 12/27/23 11:41 BMI result Body Mass Index 34.4 Const General: comfortable and no acute distress Orientation/consciousness: patient oriented x3 Eyes Conjunctivae: conjunctival abnormal right (Redness right eye) conjunctival inj ection diffuse Pupils: Equal, round and reactive pupils present EOM: EOMs intact bilaterally Direct Ophthalmoscopy: normal light reflex and no papilledema Neuro General: patient oriented x3 Cranial nerves: Yes Equal, round and reactive pupils present Assessment & Plan Assessment & Plan (1) Acute atopic conjunctivitis: Code(s): H10.10 - Acute atopic conjunctivitis, unspecified eye Qualifiers: Laterality: right Qualified Code(s): H10.11 - Acute atopic conjunctivitis, right eye Plan: - Maintain a good hygiene - Acetaminophen for headache - Advised Pt to f/u with her eye doctor today or tomorrow. Medications: New ciprofloxacin HCl 0.3% put 1-2 drps in affected eye(s) every 2hr up to 8 times/day x2days; then 4 times/day x5days ophthalmic (eye) 2.5 mL 0RF H10.11 - Acute atopic conjunctivitis, right eye Coding Level of Care Code Est Pt Level 3 (45105) Diagnoses Acute atopic conjunctivitis of right eye H10.11 Laterality: right Time Spent (min) 15
== END 2023-12-27 13:09 | disposition home or self-care (01) ==
PROVIDERS: PCP Internal Medicine; Visit Provider Nurse Practitioner Family
DX: H10.11 Acute atopic conjunctivitis, right eye (principal)
CPT/HCPCS: 99213

== ENCOUNTER 2024-01-28 14:12 | Outpatient (AMB) | payer MEDICARE, MEDICAID, SELFPAY ==
--- NOTE | 2024-01-28 14:31 | A.OFFVIS_ITS ---
Vital Signs 01/28/24 14:33 Height 5 ft 1 in Weight 182 lb BMI 34.4 Intake Visit Reasons: OV - B/L elbow pain Intake Note: Yeni is a 38 year old female, right hand dominant, who presents today for follow up on bilateral elbow pain. Patient reports constant pain today, 7 on a 0-10 pain scale. Patient is not taking anything pain. Patient reports ongoing neck pain. Patient reports previous bilateral elbows cortisone injection. EMG done 12/19/23. 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 She currently states she has constant pain in her bilateral elbows and rates the pain as 7 on the scale of 0-10. Her left elbow is worse than the right. Her pain is aggravated with sleeping, washing and lifting. She also c/o numbness with sleeping as well as ongoing neck pain. She had a bilateral elbow injection in the past which provided her relief for 2 weeks. She had tried physical therapy without relief. 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 Social History (Updated 09/06/23 @ 10:14 by SAFIA Marie) Housing: Apartment Alcohol intake: never Patient Tobacco Use Status: Former Tobacco user Tobacco use type: Cigarette e-Cigarette/Vaping Use: Never Used Second Hand Smoke Exposure: No Substance Use Type: Marijuana service: No Current occupational status: unemployed and disabled Current occupation: right hand dominant Cognitive needs: No Hearing needs: No Vision needs: No Review of Systems Const All systems reviewed & are unremarkable except as noted in HPI and below Physical Exam Vital Signs: BMI result Body Mass Index 34.4 Const General: cooperative, healthy appearing, comfortable, no acute distress, well developed and alert Orientation/consciousness: patient oriented x3 HEENT Head: Yes normal to inspection, Yes normocephalic and Yes atraumatic Eyes General: appearance normal, both eyes and all related structures Resp Effort & Inspection: normal respiratory effort and able to speak in complete sentences Cardio Rate: regular rate Peripheral pulses: Peripheral pulses 2+ throughout GI Palpation (GI): Soft to palpation Skin Lesions: no lesions Rashes: no rashes Neuro General: patient oriented x3 Extrem Other: Bilateral elbow: Skin intact. No erythema or swelling. ROM full without pain. Tenderness over the lateral epicondyle and pain with resisted wrist extension. NVI. Results Reviewed Results Reviewed: IMPRESSION: 1. This is a normal study. 2. There is no electrodiagnostic evidence for median neuropathy, ulnar neuropathy, brachial plexopathy, or cervical radiculopathy. Assessment & Plan Assessment & Plan (1) Lateral epicondylitis: Code(s): M77.10 - Lateral epicondylitis, unspecified elbow Category: Medical Qualifiers: Laterality: bilateral Qualified Code(s): M77.11 - Lateral epicondylitis, right elbow; M77.12 - Lateral epicondylitis, left elbow Plan We discussed options which include modification of activities and cortisone injection which she declined as she had only 2 weeks of relief from the previous injection. I recommend repeat physical therapy which she declined as well and therefore she was given bilateral armbands to help with her discomfort. She was also prescribed topical pain cream to help with her discomfort. Patient Instructions: Scribed for George Fields PA-C, by Matheus Vargas medical affairs director, on 01/28/2024 at 2:30 PM George MESSER PA-C, have personally reviewed and agree with the information entered by the scribe. Coding Level of Care Code Est Pt Level 3 (17364) Diagnoses Lateral epicondylitis of both elbows M77.11; M77.12 Laterality: bilateral
[2024-01-28 14:33] VITALS: BMI 34.4
== END 2024-01-28 15:19 | disposition home or self-care (01) ==
PROVIDERS: PCP Internal Medicine; Visit Provider Physician Assistant
DX: M77.11 Lateral epicondylitis, right elbow (principal); M77.12 Lateral epicondylitis, left elbow
CPT/HCPCS: 99213

== ENCOUNTER → 2024-01-28 14:12 | Outpatient (BNVA) | payer MEDICARE, MEDICAID, SELFPAY | PROVIDERS: PCP Internal Medicine; Visit Provider Physician Assistant | DX: M77.11 Lateral epicondylitis, right elbow (principal); M77.12 Lateral epicondylitis, left elbow | CPT/HCPCS: 99212 ==

== ENCOUNTER 2024-08-11 10:28 | Outpatient (AMB) | payer MEDICARE, MEDICAID, SELFPAY ==
--- NOTE | 2024-08-11 11:30 | AM.OFFWIN_ITS ---
Intake Vital Signs 08/11/24 11:32 Weight 177 lb BP 116/80 Blood Pressure Location Lt brachial Position Sitting Pulse 86 Pulse Source Pulse Oximeter Temp 98.8 F Temp Source Oral Pulse Oximetry (%) 98 Oxygen Delivery Method Room Air Intake Visit Reasons: EP sore throat, congested, cough Intake Note: Patient here for sore throat, cough and congestion that started last sunday. Patient Tobacco Use Status: Former Tobacco user Allergies tramadol Allergy (Unknown, Verified 08/11/24 11:32) Unknown Do you need a note to return to daycare/school/sports/work: No HPI EP sore throat, congested, cough HPI Details This note is constructed using voice recognition software. While every effort has been made to ensure accuracy, medical transcription radiology errors may have been included. The patient is a 38 year old female who presents to the clinic today with sore throat, cough, congestion, and sinus pressure. She denies fever, chills, sh ortness of breath. She does report that she is having some wheezing. She has been trying [id number] methods without any relief. 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 Social History (Updated 09/06/23 @ 10:14 by SAFIA Marie) Housing: Apartment Alcohol intake: never Patient Tobacco Use Status: Former Tobacco user Tobacco use type: Cigarette e-Cigarette/Vaping Use: Never Used Second Hand Smoke Exposure: No Substance Use Type: Marijuana service: No Current occupational status: unemployed and disabled Current occupation: right hand dominant Cognitive needs: No Hearing needs: No Vision needs: No Review of Systems Const All systems reviewed & are unremarkable except as noted in HPI and below Physical Exam Vital Signs: Last Vital Signs Temp 98.8 F 08/11/24 11:32 Pulse 86 08/11/24 11:32 BP 116/80 08/11/24 11:32 Pulse Ox 98 08/11/24 11:32 Oxygen Delivery Method Room Air 08/11/24 11:32 Const General: cooperative, healthy appearing, comfortable and no acute distress Orientation/consciousness: patient oriented x3 Limitations: no limitations HEENT Head: Yes normal to inspection Ears: hearing grossly normal bilaterally, external ears normal and TM's normal bilaterally General nose exam: Normal external nose present, Normal nares present, Abnormal mucous membranes and turbinates present erythematous and Nasal discharge present purulent Face and sinus: Yes normal facial exam and Yes sinus tenderness Mouth: Normal oral and palatal mucosa present and moist mucous membranes Throat: Yes posterior oropharynx normal, Yes tonsils normal and Yes uvula midline Eyes General: appearance normal, both eyes and all related structures Neck Neck: Yes normal visual inspection Resp Effort & Inspection: normal respiratory effort, able to speak in complete sentences, Actively coughing, no respiratory distress, not tachypneic, no tripod positioning and no use of accessory muscles Auscultation: wheezes (Clear with cough) Cardio Rate: regular rate Rhythm: regular rhythm Heart sounds: normal S1 and S2 Skin General skin exam: no rashes or lesions noted Neuro General: patient oriented x3 Extrem General: Yes normal to inspection and Yes no clubbing, cyanosis or edema Results AMB Rapid Strep AMB Rapid Strep Negative Last Edit by URBINA Swann on 08/11/24 11:54 Assessment & Plan Assessment & Plan (1) Sinusitis: Code(s): J32.9 - Chronic sinusitis, unspecified Qualifiers: Sinusitis location: maxillary Chronicity: acute Recurrence: non- recurrent Qualified Code(s): J01.00 - Acute maxillary sinusitis, unspecified Plan: Supportive measures encouraged and reviewed. Advised consideration of sinus rinse if needed. Antibiotic sent to requested pharmacy, advised patient to take antibiotics until completed and not to stop if feeling better, unless the patient has side effects. Albuterol inhaler sent for management of wheezing. Advised patient to follow up with primary care provider with worsening or failure to resolve. Plan See above for full details and plan. Orders: Orders AMB Rapid Strep Screen Today Z13.9 - Encounter for screening, unspecified Medications: New amoxicillin-pot clavulanate 875-125 mg 1 tab PO BID 7 days 14 tabs 0RF Refilled albuterol sulfate 90 mcg/actuation (Ventolin HFA) 2 puffs inhalation Q6H PRN 6.7 grams 0RF shortness of breath or wheezing Coding Level of Care Code Est Pt Level 3 (86272) Diagnoses Acute non-recurrent maxillary sinusitis J01.00 Sinusitis location: maxillary Chronicity: acute Recurrence: non-recurrent
[2024-08-11 11:32] VITALS: BP 116/80; PULSE 86; TEMP 37.1; O2SAT 98
== END 2024-08-11 13:16 | disposition home or self-care (01) ==
PROVIDERS: PCP Internal Medicine; Visit Provider Registered Nurse
DX: J01.00 Acute maxillary sinusitis, unspecified (principal); Z13.9 Encounter for screening, unspecified

== ENCOUNTER → 2024-08-11 10:28 | Outpatient (BNVA) | payer MEDICARE, MEDICAID, SELFPAY | PROVIDERS: PCP Internal Medicine; Visit Provider Registered Nurse | DX: J01.00 Acute maxillary sinusitis, unspecified (principal) | CPT/HCPCS: 87880; 99212 ==

== ENCOUNTER 2024-09-19 11:10 | Outpatient (AMB) | payer MEDICARE, MEDICAID, SELFPAY ==
[2024-09-19 11:17] VITALS: BP 120/72; PULSE 82; O2SAT 96; BMI 34.4
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
== END 2024-09-19 12:50 | disposition home or self-care (01) ==
PROVIDERS: PCP Internal Medicine; Visit Provider Internal Medicine
DX: Z00.00 Encounter for general adult medical examination without abnormal findings (principal); M47.817 Spondylosis without myelopathy or radiculopathy, lumbosacral region; E66.9 Obesity, unspecified; Z68.34 Body mass index [BMI] 34.0-34.9, adult; J45.909 Unspecified asthma, uncomplicated; K21.9 Gastro-esophageal reflux disease without esophagitis; F41.1 Generalized anxiety disorder; Z12.31 Encounter for screening mammogram for malignant neoplasm of breast; K59.00 Constipation, unspecified

== ENCOUNTER → 2024-09-19 11:10 | Outpatient (BNVA) | payer MEDICARE, MEDICAID, SELFPAY | PROVIDERS: PCP Internal Medicine; Visit Provider Internal Medicine | DX: Z00.00 Encounter for general adult medical examination without abnormal findings (principal); M47.817 Spondylosis without myelopathy or radiculopathy, lumbosacral region; J45.909 Unspecified asthma, uncomplicated; K21.9 Gastro-esophageal reflux disease without esophagitis; F41.1 Generalized anxiety disorder; E66.9 Obesity, unspecified; K59.00 Constipation, unspecified | CPT/HCPCS: 96127; 99396 ==

== ENCOUNTER 2024-10-08 07:16 | Outpatient (REF) | payer MEDICARE, MEDICAID, SELFPAY ==
[2024-10-08 07:36] LABS: MANUAL DIFF FLAG NO
[2024-10-08 08:05] LABS: Basophils Absolute Auto 0.1 X10*3/uL (0.0-0.2); Eosinophils Absolute Auto 0.2 X10*3/uL (0.0-0.4); Eosinophils Percent Auto 2.1 % (0-4); Hematocrit 44.1 % (37.0-47.0); Hemoglobin 14.4 g/dl (12.0-16.0); Imm Gran Abs Auto 0.01 X10*3/uL (0.00-0.03); Imm Gran Pct Auto 0.1 % (0.0-0.4); Lymphocytes Absolute Auto 1.9 X10*3/uL (1.2-4.9); Lymphocytes Percent Auto 26.2 % (20-40); Mean Corpuscular HGB Conc 32.7 g/dl (31.0-35.0); Mean Corpuscular Hemoglobin 30.2 pg (27.0-33.0); Mean Corpuscular Volume 92.5 fL (80.0-98.0); Mean Platelet Volume 10.3 fL (9.4-12.3); Monocytes Absolute Auto 0.7 X10*3/uL (0.1-1.2); Monocytes Percent Auto 9.2 % (2-11); Neutrophils Absolute Auto 4.5 x10*3/uL (2.0-8.3); Neutrophils Percent Auto 61.4 % (45-73); Platelet Count 314 X10*3/uL (160-400); Red Blood Count 4.77 X10*6/uL (4.20-5.50); Red Cell Distribution Width 13.8 % (11.0-16.0); White Blood Count 7.3 X10*3/uL (4.8-10.8)
[2024-10-08 08:08] LABS: Appearance Urine Clear; Color Urine Yellow; Glucose Urine UA Negative (Negative); Leukocyte Esterase Urine Negative (Negative); Nitrite Urine Negative (Negative); Specific Gravity - Urine 1.025 (1.005-1.025); UMIC TRIGGER UACC YES; Urine Blood Trace (Negative); Urine Ketones 15 mg/dL (Negative); Urine Protein Negative (Neg-Trace)
[2024-10-08 08:11] LABS: Bacteria Urine None Seen (None Seen); Hyaline Casts Urine 0-2 /LPF (0-2); RBC Urine 0-2 /HPF (0-2); Squamous Epithelial Cell Urine 0-2 /HPF (0-2); WBC Urine 0-5 /HPF (0-5)
[2024-10-08 08:43] LABS: Alanine Aminotransferase 27 U/L (0-31); Albumin Level 4.4 g/dL (3.5-5.0); Alkaline Phosphatase 65 U/L (39-117); Anion Gap 11 (12-20); Aspartate Amino Transferase 26 U/L (5-31); Bilirubin Total 0.5 mg/dL (0.0-1.0); Blood Urea Nitrogen 11 mg/dL (9-16); Calcium 8.8 mg/dL (8.4-10.2); Carbon Dioxide 23 mmol/L (22-29); Chloride 111 mmol/L (96-108); Cholesterol 199 mg/dL (<200); Estimated Glomerular Filt Rate > 60; Glucose Random 87 mg/dL (60-115); HDL Cholesterol 35 mg/dL (>40); LDL Cholesterol Calculated 143 mg/dL (<100); Potassium 3.8 mmol/L (3.3-5.1); Sodium 141 mmol/L (135-145); Total Protein 7.8 g/dL (6.5-8.0); Triglycerides 105 mg/dL (<150)
[2024-10-08 09:00] LABS: Free T4 (Free Thyroxine) 1.04 ng/dL (0.71-1.85); Vitamin D 25-OH Total 23.9 ng/mL (>30)
[2024-10-08 09:11] LABS: Vitamin B12 415 pg/mL (200-900)
== END 2024-10-08 07:17 | disposition home or self-care (01) ==
LOC: HO.LAB 07:16
PROVIDERS: PCP Internal Medicine; Visit Provider Internal Medicine
DX: E78.00 Pure hypercholesterolemia, unspecified (principal)
CPT/HCPCS: 36415; 80053; 80061; 81001; 82306; 82607; 82746; 84439; 84443; 85025

== ENCOUNTER 2024-10-09 10:42 | Outpatient (AMB) | payer MEDICARE, MEDICAID, SELFPAY ==
--- NOTE | 2024-10-09 10:51 | AM.OFFVISNUR ---
Intake Visit Reasons: Tetanus shot Allergies tramadol Allergy (Unknown, Verified 09/19/24 11:24) Unknown Office Procedures Flu Questionnaire Does the patient have a severe egg allergy?: No Does the patient have severe life threatening allergies?: No Does the patient have a fever or illness today?: No Has the patient ever had Guillain-Philo Syndrome?: No Has the patient ever had any past reaction to a flu shot?: No Immunizations Fluarix Triv [id number] (PF) 45 mcg (15 mcg x 3)/0.5 mL IM syringe Performing Provider: Olamide Matos MD [facility] [place] Administered by: Varsha Ledezma LPN on 10/09/24 10:52 Dose Route Admin Location Dispensed Lot Number Expiration Date [facility] [place] Assistant Warehouse Manager 0.5 mL IM Left Deltoid 0.5 mL [id number] 03/23/25 [id number] [employer] VIS Given Date VIS Provided VIS Publication Date 10/09/24 Single Vaccine 21 Eligibility Eligibility Date Funding Source Not [facility] Eligible 10/09/24 Private Assessment & Plan Assessment & Plan Orders: Orders Influenza [id number] Immunization Today Z23 - Encounter for immunization Medications: New Fluarix Triv [id number] (PF) (flu vacc [id number] 6mos up(PF)) 0.5 mL IM ONCE 0.5 mL 0RF NS Z23 - Encounter for immunization
== END 2024-10-09 10:52 | disposition home or self-care (01) ==
PROVIDERS: PCP Internal Medicine; Visit Provider Internal Medicine
DX: Z23 Encounter for immunization (principal)

== ENCOUNTER → 2024-10-09 10:42 | Outpatient (BNVA) | payer MEDICARE, MEDICAID, SELFPAY | PROVIDERS: PCP Internal Medicine; Visit Provider Internal Medicine | DX: Z23 Encounter for immunization (principal) | CPT/HCPCS: 90471; 90656 ==

== ENCOUNTER 2024-12-25 12:20 | Outpatient (REF) | payer MEDICARE, MEDICAID, SELFPAY | END 2024-12-25 12:21 | disposition home or self-care (01) | LOC: HO.MAMMO 12:20 | PROVIDERS: PCP Internal Medicine; Visit Provider Internal Medicine | DX: Z12.31 Encounter for screening mammogram for malignant neoplasm of breast (principal) | CPT/HCPCS: 77063; 77067 ==

== ENCOUNTER → 2024-12-25 12:30 | Outpatient (BNV) | payer MEDICARE, MEDICAID, SELFPAY | PROVIDERS: PCP Internal Medicine; Visit Provider Internal Medicine | DX: Z12.31 Encounter for screening mammogram for malignant neoplasm of breast (principal) | CPT/HCPCS: 77063; 77067 ==

== ENCOUNTER 2025-04-05 12:03 | Emergency (ER) | payer MEDICARE, MEDICAID, SELFPAY ==
[2025-04-05 12:54] VITALS: BP 130/93; PULSE 87; RESP 20; TEMP 36.2; O2SAT 98; BMI 32.3
--- NOTE | 2025-04-05 12:56 | ED_ITS ---
HPI - General Adult General Chief complaint: Eye Problems Stated complaint: eye pain Time Seen by Provider: 04/05/25 13:14 Source: patient, RN notes reviewed and judicial administrative assistant (video) Mode of arrival: ambulatory Limitations: language barrier (Video) History of Present Illness HPI narrative: 39-year-old female presents for evaluation of right eye discomfort, tearing and discharge. Patient states she has had similar symptoms in the past. She does not wear glasses or contacts. Patient states that this has been going on for the past 3 days. She feels as though it is worsening, with associated swelling to the eyelids. She denies any visual changes. No fevers chills nausea or vomiting. She denies any trauma. She is advised feeling well. Related Data Home Medications ?Medication ?Instructions ?Recorded ?Confirmed TRUVY PO 09/19/24 09/19/24 Previous Rx's ?Medication ?Instructions ?Recorded cholecalciferol (vitamin D3) 50 50 mcg PO DAILY #90 ca ps 04/09/23 mcg (2,000 unit) capsule albuterol sulfate 90 mcg/actuation 2 puff inhalation Q 6H PRN 08/11/24 aerosol inhaler (Ventolin HFA) shortness of breath or wheezing #6.7 grams fluticasone propionate 50 2 spray intranasal DAILY #16 grams 09/19/24 mcg/actuation nasal spray,suspension (Flonase Allergy Relief) ciprofloxacin HCl 0.3 % eye drops 2 drp ophthalmic-Rig ht Q4H 7 days 04/05/25 #5 mL Allergies Allergy/AdvReac Type Severity Reaction Status Date / Time tramadol Allergy Unknown Unknown Verified 04/05/25 13:00 Review of Systems Constitutional: Constitutional: Denies chills and Denies fever(s) Eyes: Eyes: Denies blurry vision, Reports eye discharge, Reports irritation and Denies loss of vision ENT: Denies nasal congestion, Denies nasal discharge and Denies sore throat Gastrointestinal: Gastrointestinal: Denies abdominal pain, Denies melena, Denies hematochezia, Denies diarrhea, Denies nausea and Denies vomiting Neurologic: Denies loss of vision PMFSH Past Medical History Medical History Vitamin D deficiency Cervicalgia Hypercholesterolemia Depression Chronic pain syndrome 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 Maternal Aunt Breast cancer Maternal Grandmother Breast cancer Social History Social History (Updated 09/19/24 @ 12:32 by Olamide Matos MD) Housing: Apartment Alcohol intake: never Patient Tobacco Use Status: Former Tobacco user Tobacco use type: Cigarette Years Smoked: marijuana e-Cigarette/Vaping Use: Never Used Second Hand Smoke Exposure: No Substance Use Type: Marijuana Advance Directives: No Advance Directives Information Provided: No Do you have a plan to hurt others: No Plan service: No Current occupational status: unemployed and disabled Current occupation: right hand dominant Cognitive needs: No Hearing needs: No Vision needs: No Physical Exam ED Vital Signs: Vital Signs - 24 hr 04/05/25 12:54 04/05/25 13:17 Temperature 97.2 F 97.2 F Pulse Rate 87 87 Respiratory Rate 20 20 Blood Pressure 130/93 H 130/93 H Pulse Oximetry 98 98 Oxygen Delivery Method Room Air Room Air BMI result Body Mass Index 32.3 Const General: cooperative and alert HENMT Other: Pupils equal round and reactive to light. The right eye is injected. There is some tearing noted. Fluorescein staining does not reveal any uptake. No foreign body noted under the lids. Slight edema to the lid border of the upper and lower lid. No signs of entrapment. No Shirin sign. Visual rey and visual acuity are intact. Oropharynx is moist. Nares are patent. Auditory canals are patent. Resp Auscultation: clear to auscultation bilaterally Cardio Rate: regular rate Rhythm: regular rhythm Course Course Course Narrative: Medical screening exam performed. Please refer to detailed history, exam, evaluation, and management by primary provider. Reevaluation(s) Reevaluation #1: Reviewed all discharge instructions including antibiotics. 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 No further questions at this time. Visual acuity remains intact. Medications Administered Discontinued Medications Generic Name Dose Route Start Last Admin Trade Name Freq PRN Reason Stop Dose Admin Fluorescein Sodium 1 strip 04/05/25 12:59 04/05/25 13:06 Fluorescein Sodium Strip EYE-RIGHT 04/05/25 13:00 1 strip ONCE ONE Administration Tetracaine HCl 1 drop 04/05/25 12:59 04/05/25 13:06 Tetracaine Hcl 0.5% Oph Lisa 5 Ml Drops EYE-RIGHT 04/05/25 13:00 1 drop ONCE ONE Administration Medical Decision Making Medical Decision Making MDM Narrative: 39-year-old female with right eye redness and tearing. No evidence of foreign body. No visual changes. Concern for possible infection. We will place on antibiotics. Differential Diagnosis Differential Diagnoses: The differential diagnosis associated with the presentation includes Conjunctivitis Iritis Corneal abrasion Blepharitis Discharge Plan Discharge Clinical Impression: Acute conjunctivitis of right eye Qualifiers: Acute conjunctivitis type: unspecified Qualified Code(s): H10.31 - Unspecified acute conjunctivitis, right eye Patient Disposition: Home, Self-Care Instructions: Conjunctivitis (ED) Additional Instructions: Eye drops as directed. Follow-up with your primary care provider. Call this week to schedule a follow- up appointment. Return to the emergency department if you have any worsening of symptoms, or any concerns. Get well soon! Prescriptions: New ciprofloxacin HCl 0.3 % drops 2 drp ophthalmic-Right Q4H 7 Days Qty: 5 0RF No Action cholecalciferol (vitamin D3) 50 mcg (2,000 unit) capsule 50 mcg PO DAILY Qty: 90 3RF TRUVY PO Rx Instructions: green tea , orange chilly fluticasone propionate [Flonase Allergy Relief] 50 mcg/actuation spray,suspension 2 spray intranasal DAILY Qty: 16 1RF Rx Instructions: administer into each nostril albuterol sulfate [Ventolin HFA] 90 mcg/actuation HFA aerosol inhaler 2 puff inhalation Q6H PRN (Reason: shortness of breath or wheezing) Qty: 6.7 0RF Interventions: ED Discharge Assessment Last Done: 04/05/25 13:17 Discharge Date/Time: 04/05/25 13:19 Print Language: Yoruba
[2025-04-05] MEDS: Fluorescein Sodium STRIP 1 STRIP EYE-RIGHT (13:06)
[2025-04-05] MEDS: Tetracaine HCl 0.5% Oph Sol 5 ML DROPS 1 DROP EYE-RIGHT (13:06)
[2025-04-05 13:17] VITALS: BP 130/93; PULSE 87; RESP 20; TEMP 36.2; O2SAT 98
== END 2025-04-05 13:19 | disposition home or self-care (01) ==
PROVIDERS: Emergency Provider Emergency Medicine; PCP Internal Medicine
DX: H10.31 Unspecified acute conjunctivitis, right eye (principal); Z79.899 Other long term (current) drug therapy
CPT/HCPCS: 99282; 99283

== ENCOUNTER 2025-05-14 15:13 | Outpatient (AMB) | payer MEDICARE, MEDICAID, SELFPAY ==
--- NOTE | 2025-05-14 15:25 | A.OFFPC_ITS ---
Vital Signs 05/14/25 15:26 Height 5 ft 1 in Weight 176 lb 4 oz BMI 33.3 BP 116/60 Blood Pressure Location Lt brachial Position Sitting Pulse 102 H Pulse Source Pulse Oximeter Temp 97.3 F Temp Source Temporal Artery Scan Pulse Oximetry (%) 100 Oxygen Delivery Method Room Air Intake Visit Reasons: Mammography review Director Validation Required: Yes Director Validation Language: French Allergies tramadol Allergy (Unknown, Verified 05/14/25 15:28) Unknown Medication List - Last Reconciled 05/14/25 by Olamide Matos MD albuterol sulfate 90 mcg/actuation (Ventolin HFA) 2 puffs inhalation Q6H PRN cholecalciferol (vitamin D3) 50 mcg PO DAILY ciprofloxacin HCl 0.3% 2 drps ophthalmic-Right Q4H 7 days fluticasone propionate 50 mcg/actuation (Flonase Allergy Relief) 2 sprays int ranasal DAILY meloxicam 15 mg PO DAILY [TRUVY green tea , orange chilly] Tobacco use date assessed: 05/14/25 Dental Screening Dental Screen Date: 05/14/25 Did you have a dental visit in the last 12 months?: Yes Did you have a dental problem in the last 6 months where you did not have access to dental care?: No Was dental information given to patient?: Patient has dentist HPI Mammography review [facility] Details [facility] [id number] [facility] Medical History Vitamin D deficiency Cervicalgia Hypercholesterolemia Depression Chronic pain syndrome 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 Maternal Aunt Breast cancer Maternal Grandmother Breast cancer Social History Housing: Apartment Alcohol intake: never Patient Tobacco Use Status: Former Tobacco user Tobacco use type: Cigarette Years Smoked: marijuana e-Cigarette/Vaping Use: Never Used Second Hand Smoke Exposure: No Substance Use Type: Marijuana service: No Current occupational status: unemployed and disabled Current occupation: right hand dominant Cognitive needs: No Hearing needs: No Vision needs: No Questionnaire PHQ-9 Over the last 2 weeks, how often have you been bothered by any of the following problems? 1. Little interest or pleasure in doing things: nearly every day 2. Feeling down, depressed, or hopeless: nearly every day 3. Trouble falling or staying asleep, or sleeping too much: nearly every day 4. Feeling tired or having little energy: nearly every day 5. Poor appetite or overeating: more than half the days 6. Feeling bad about yourself - or that you are a failure or have let yourself or your family down: several days 7. Trouble concentrating on things, such as reading the newspaper or watching television: more than half the days 8. Moving or speaking so slowly that other people could have noticed. Or the opposite - being so fidgety or restless that you have been moving around a lot more than usual: more than half the days 9. Thoughts that you would be better off or of hurting yourself in some way: not at all Total score: 19 Source: Developed by Drs. Alexx Frye, Deanne Turner, Todd Diaz and colleagues, with an educational ascencion from [employer]. Thrive Questionnaire Date Thrive assessed: 10/09/24 I am a: Patient What is your living situation today?: I have a steady place to live Within the past 12 months, did the food you bought not last and you didn't have the money to get more?: Sometimes True Within the past 12 months, did you worry whether your food would run out before you got money to buy more?: Sometimes True Do you have trouble paying for medicines?: No Do you have trouble getting transportation to medical appointments?: No Do you have trouble paying your heating and electricity bill?: I choose not to answer this question Do you have trouble taking care of your child, family member or friend?: No Do you have trouble with day-to-day activities such as bathing, preparing meals, shopping, managing finances, etc.?: No Are you currently unemployed and looking for a job?: I choose not to answer this question Are you interested in more education?: No Please select the resources that you would like help with: None Currently or been in a relationship where the following occur: I choose not to answer THRIVE Score: 2 AUDIT C Alcohol Use Questionnaire (AUDIT-C) 1. How often do you have a drink containing alcohol?: Monthly or less 2. How many drinks containing alcohol do you have on a typical day when you are drinking?: 3 or 4 3. How often do you have six or more drinks on one occasion?: Never Total Score: 2 JENNIFER-7 AMB Questionnaire JENNIFER-7 Date JENNIFER - 7 assessed: 05/14/25 Feeling nervous, anxious, or on edge: 2 = More than half the days Not being able to stop or control worryin = Nearly every day Worrying too much about different things: 3 = Nearly every day Trouble relaxin = Nearly every day Being so restless that it is hard to sit still: 1 = Several days Becoming easily annoyed or irritable: 3 = Nearly every day Feeling afraid as if something awful might happen: 3 = Nearly every day Total JENNIFER-7 score (0-4 normal; 5-9 mild; 10-14 moderate; 15-21 severe): 18 Source: Developed by Drs. Alexx Frye, Deanne Turner, Todd Diaz and colleagues, with an educational ascencion from [employer]. Physical exam (Primary Care) Vital Signs: Last Vital Signs Temp 97.3 F 05/14/25 15:26 Pulse 102 H 05/14/25 15:26 BP 116/60 05/14/25 15:26 Pulse Ox 100 05/14/25 15:26 Oxygen Delivery Method Room Air 05/14/25 15:26 BMI result Body Mass Index 33.3 Tobacco/Smoking Status: Tobacco use Status Tobacco use date assessed 05/14/25 05/14/25 15:30 Patient Tobacco Use Status Former Tobacco user 05/14/25 15:26 Tobacco use type Cigarette 05/14/25 15:26 e-Cigarette/Vaping Use Never Used 05/14/25 15:26 PHQ-9: PHQ-9 Score PHQ-9: Total score 19 05/14/25 15:57 Thrive Assessment: Date of Thrive Assessment Date Thrive assessed 10/09/24 05/14/25 15:26 Currently or been in a relationship where the following occur: I choose not to answer Const General: alert; No acute distress Eyes Conjunctivae: conjunctivae normal Resp Auscultation: clear to auscultation bilaterally Cardio Rate: regular rate Rhythm: regular rhythm GI Inspection: Yes normal to inspection Skin Other: Noted irregular hyperpigmented lesions over the both lower extremities from the thigh to the leg Extrem General: Yes normal to inspection and No edema Coding Level of Care Code Est Pt Level 4 (20105) Complex EM visit Add On G2211 Diagnoses Hypercholesterolemia E78.00 Obesity (BMI 30-39.9) E66.9 GERD (gastroesophageal reflux disease) K21.9 Vitamin D deficiency E55.9 Asthma J45.909 Generalized anxiety disorder F41.1 Dense breast R92.30 Photodermatitis L56.8 Cervicalgia M54.2 Assessment & Plan Assessment & Plan (1) Hypercholesterolemia: Code(s): E78.00 - Pure hypercholesterolemia, unspecified Category: Medical Plan: Avoid fried foods, chicken skin, eggs, butter margarine, pastries and meat. Be it pork or beef they have a lot of cholesterol LDL goal of less than 130 and triglyceride of less than 150 (2) Obesity (BMI 30-39.9): Code(s): E66.9 - Obesity, unspecified Category: Medical Plan: Diet and exercise (3) GERD (gastroesophageal reflux disease): Code(s): K21.9 - Gastro-esophageal reflux disease without esophagitis Category: Medical Plan: Avoid the foods that causes that usually spicy foods, tomato products, juices, coffee, soda and foods that your sensitive to. After eating do not lie down, allow 3-4 hours before in lie down. And keep the head of bed above 30 degrees to avoid the acid from going up. (4) Vitamin D deficiency: Code(s): E55.9 - Vitamin D deficiency, unspecified Category: Medical Plan: Vitamin-D 4379-1112 units once a day (5) Asthma: Comment: PFT: 10/14/22: Moderate to severe obstructive airway disorder with almost complete reversibility after bronchodilator therapy. These findings are consistent with bronchial asthma. Code(s): J45.909 - Unspecified asthma, uncomplicated Category: Medical Plan: Continue with albuterol inhaler as needed (6) Generalized anxiety disorder: Comment: Declined referral for counseling October 2019 Code(s): F41.1 - Generalized anxiety disorder Category: Medical Plan: Stable (7) Dense breast: Code(s): R92.30 - Dense breasts, unspecified Category: Medical (8) Photodermatitis: Code(s): L56.8 - Other specified acute skin changes due to ultraviolet radiation Category: Medical (9) Cervicalgia: Code(s): M54.2 - Cervicalgia Category: Medical Plan History of Present Illness The patient is a 39-year-old female presenting with management of chronic conditions and preventative care. She has a history of asthma, which has been managed with an albuterol inhaler as needed. Her asthma is currently stable. The patient also has a history of major depressive disorder and generalized anxiety disorder, which have been recurrent issues. She has been managing these conditions with lifestyle modifications and medication adherence. Hypercholesterolemia is another concern, with recent lab results indicating an LDL level of 143 mg/dL, which is above the desired goal of less than 130 mg/dL. The patient has been advised to manage this through diet and exercise, aiming to reduce intake of high-cholesterol foods. The patient has a history of gastroesophageal reflux disease (GERD), which causes reflux pain. She manages this condition with dietary adjustments and medication as needed. Preventative care measures include being up to date with mammograms and Pap smears. Her last mammogram was conducted in December 2024, and her last Pap smear was in June 2022. Health Maintenance - Mammogram: Last done in December 2024, results benign with dense breast tissue noted. - Pap smear: Last done in June 2022, up to date. - Blood work: September 2024, normal blood count, electrolytes, renal function, and blood sugar; elevated LDL cholesterol at 143 mg/dL, low vitamin D. - Vitamin D supplementation: Recommended 1000 to 2000 units daily. Social History - Family status: Takes care of granddaughters during the week, impacting time availability for personal care. Review of Systems - Respiratory: Reports stable asthma, denies recent exacerbations. - Gastrointestinal: Reports reflux pain, managed with dietary adjustments. - Musculoskeletal: Reports neck muscle pain, denies specific inciting event. - Neurological: Reports cramping in hands during sleep, denies persistent numbness. Physical Exam Results - Labs: September 2024, normal blood count, electrolytes, renal function, and blood sugar; elevated LDL cholesterol at 143 mg/dL, low vitamin D. - Imaging: Mammogram in December 2024, benign with dense breast tissue noted. Plan The patient will continue using the albuterol inhaler as needed for asthma management, as her condition is currently stable. For hypercholesterolemia, dietary modifications are recommended, focusing on reducing intake of high- cholesterol foods and increasing physical activity to achieve an LDL goal of less than 130 mg/dL. Vitamin D supplementation is advised at a dose of 1000 to 2000 units daily to address the deficiency noted in recent labs. For gastroesophageal reflux disease, the patient should continue dietary adjustments and use medication as needed to manage symptoms. Preventative care will include scheduling an ultrasound for dense breast tissue as discussed with the radiologist. The patient is advised to maintain regular screenings, including mammograms and Pap smears, to ensure ongoing health maintenance. Patient was informed and verbally consented to the use of an ambient scribe for clinic note documentation during this visit. Discussion Notes During the visit, I discussed with the patient the importance of managing her hypercholesterolemia through dietary changes and exercise to achieve an LDL goal of less than 130 mg/dL. We also talked about the need for vitamin D suppl ementation due to low levels identified in her recent labs. I explained the significance of maintaining regular preventative screenings, including mammograms and Pap smears, and the plan to schedule an ultrasound for dense breast tissue. Patient Instructions - Continue using albuterol inhaler as needed for asthma. - Follow a low-cholesterol diet and increase physical activity to manage cholesterol levels. - Take vitamin D supplements, 1000 to 2000 units daily. - Continue dietary adjustments and medication for GERD as needed. - Schedule an ultrasound for dense breast tissue as discussed. - Maintain regular screenings, including mammograms and Pap smears. Orders: Orders US breast LT complete Today R92.30 - Dense breasts, unspecified US breast RT complete Today R92.30 - Dense breasts, unspecified PT Evaluation and Treatment Today M54.2 - Cervicalgia Referrals Dermatology Referral L56.8 - Other specified acute skin changes due to ultraviolet radiation Medications: New meloxicam 15 mg PO DAILY 20 tabs 0RF M54.2 - Cervicalgia Refilled cholecalciferol (vitamin D3) 50 mcg PO DAILY 90 caps 3RF F41.1 - Generalized anxiety disorder
[2025-05-14 15:26] VITALS: BP 116/60; PULSE 102; TEMP 36.3; O2SAT 100; BMI 33.3
== END 2025-05-14 16:27 | disposition home or self-care (01) ==
LOC: HO.HMCH 15:14
PROVIDERS: PCP Internal Medicine; Visit Provider Internal Medicine
DX: E78.00 Pure hypercholesterolemia, unspecified (principal); E66.9 Obesity, unspecified; K21.9 Gastro-esophageal reflux disease without esophagitis; Z68.33 Body mass index [BMI] 33.0-33.9, adult; E55.9 Vitamin D deficiency, unspecified; J45.909 Unspecified asthma, uncomplicated; F41.1 Generalized anxiety disorder; R92.30 Dense breasts, unspecified; L56.8 Other specified acute skin changes due to ultraviolet radiation; M54.2 Cervicalgia

== ENCOUNTER → 2025-05-14 15:13 | Outpatient (BNVA) | payer MEDICARE, MEDICAID, SELFPAY | PROVIDERS: PCP Internal Medicine; Visit Provider Internal Medicine | DX: E78.00 Pure hypercholesterolemia, unspecified (principal); E66.9 Obesity, unspecified; Z68.33 Body mass index [BMI] 33.0-33.9, adult; K21.9 Gastro-esophageal reflux disease without esophagitis; E55.9 Vitamin D deficiency, unspecified; J45.909 Unspecified asthma, uncomplicated; F41.1 Generalized anxiety disorder; R92.30 Dense breasts, unspecified; L56.8 Other specified acute skin changes due to ultraviolet radiation; M54.2 Cervicalgia; Z71.3 Dietary counseling and surveillance; Z87.891 Personal history of nicotine dependence | CPT/HCPCS: 99212 ==

== ENCOUNTER 2025-07-07 07:36 | Outpatient (RCR) | payer MEDICARE, MEDICAID, SELFPAY ==
[2025-06-04 10:03] VITALS: BP 117/56; PULSE 76
--- NOTE | 2025-06-04 10:59 | MHC.PT.EP ---
[facility] [place] Office [place] Office [place] Office [address] [place] [address] [phone] F: [phone] F: [phone] F: [phone] F: [phone] Physical Therapy Plan of Care Date of Evaluation: 06/04/25 Date of Surgery: NA Diagnosis: Cervicalgia Assessment: Yeni is a 39 year old female who is referred to PT for cervicalgia . She reports of having pain in her neck, B UT, head ache and upper back for about 1 year. She denies any trauma or falls. Her pain has gotten worse with time. On PT examination she presents with TTP over L UT, T1 to T4 spinous process, decreased neck ROM, 6-8/10 pain with supine lying, looking down, up and rotation, decreased cervical and scap strength, and altered posture. She lives with her daughter and is independent with all ADLS but has pain with them. She is unemployed. She would benefit from skilled PT to address the aforementioned impairments and improve tolerance to functional activities. Frequency and Duration: The patient will be seen 2/week for 5 weeks Short Term Goals: 1. Pt will have 50% decrease in pain which will enable her to sleep through the night in 2 weeks 2. Pt will be able to move her neck through all planes of motion without any pain which will enable her to rotate her neck to drive and look down at her phone without pain in 3 weeks [facility] Goals: 1. Pt will demonstrate an increase in muscle strength by 1 grade which will enable her to perform all ADLS without pain in 5 weeks 2. Pt will be independent with all HEP for symptom management and maintenance following d/c in 5 weeks Treatment Plan: Modalities to reduce pain, spasms and effusion. Manual therapy to restore motion and function. Therapeutic exercise to improve strength and flexibility. Neuromuscular re-education for posture and balance. Therapeutic activities to return to functional activities of daily living. Electronically signed by: Bella Dominique PT DPT Please sign and return to therapist. Thank you for your referral.
--- NOTE | 2025-07-15 13:31 | MHC.PT.DC ---
[facility] [place] Office [place] Office [place] Office [address] [place] [address] [phone] F: [phone] F: [phone] F: [phone] F: [phone] Physical Therapy Discharge Report Diagnosis: Cervicalgia Date of Surgery: NA Date of Evaluation: 06/04/25 Date of Discharge: 07/15/25 Treatments to Date: 6 Cancellations to Date: 0 No Shows to Date: 0 Discharge Status: Achieved Goals Improved Function Independent with HEP Discharge Summary: Yeni attended 6 PT visits and made significant improvements with PT. She is independent with all HEP and has achieved all goals set for her. She is therefore being d/c from PT. Electronically signed by: Bella Dominique, PT DPT Please sign and return to therapist. Thank you for your referral.
== END 2025-07-15 13:31 | disposition home or self-care (01) ==
LOC: HO.PT 07:36
PROVIDERS: PCP Internal Medicine; Visit Provider Internal Medicine
DX: M54.2 Cervicalgia (principal)
CPT/HCPCS: 97110; 97140; 97161; 97530